=== PATIENT | male | born 1940 | race Caucasian/White ===

== ENCOUNTER 2023-06-03 18:07 | Observation (INO) | payer MEDICARE, SELFPAY ==
[2023-06-03] VITALS (13 sets, daily range): BP systolic 88–113; BP diastolic 54–97; BMI 25.2
[2023-06-03 12:55] LABS: Hematocrit 32.3 % (39.0-52.0); Hemoglobin 11.5 g/dL (13.0-18.0); Mean Corp Hgb Conc. 35.6 g/dL (33.0-37.0); Mean Corpuscular Volume 109.5 fL (80.0-94.0); Platelet Count 57 10^3/uL (130-400); Red Blood Cell Count 2.95 10^6/uL (4.70-6.10); Red Cell Dist. Width 13.5 % (11.5-14.5); White Blood Cell Count 4.3 10^3/uL (4.8-10.8)
--- NOTE | 2023-06-03 13:36 | EDRN ---
called pt primary point of contact. Left message for home medication clarification.
[2023-06-03 13:41] LABS: ALT (SGPT) 14 U/L (0-50); AST (SGOT) 20 U/L (17-59); Albumin 4.3 g/dl (3.5-5.0); Alkaline Phosphatase 72 U/L (38-126); Blood Urea Nitrogen 21 mg/dl (9-20); Calcium 8.9 mg/dl (8.4-10.2); Carbon Dioxide 20 mmol/L (22-30); Chloride 104 mmol/L (98-107); Estimated Creatinine Clearance 52 ml/min; Glucose 181 mg/dl (70-99); Potassium 4.1 mmol/L (3.5-5.1); Sodium 134 mmol/L (135-145); Total Bilirubin 1.1 mg/dl (0.2-1.3); Total Protein 7.2 g/dl (6.3-8.2); eGFR > 60.00
[2023-06-03 13:47] LABS: Absolute Neutrophils -Man Diff 1.7 10^3/uL (1.4-6.5); Band Neutrophils 0 % (0-3); Lymphocytes 38 % (20-51); Monocytes 5 % (2-9); Segmented Neutrophils 40 % (42-75)
[2023-06-03 13:48] LABS: Atypical Lymphocytes 16 %
[2023-06-03 13:49] LABS: Normal RBC Morphology No
[2023-06-03 13:50] LABS: Acanthocytes Occasional; Nucleated Red Blood Cells 4 (-); Ovalocytes 2+; Poikilocytosis 1+; Tear Drop Red Blood Cells Occasional; Total Cells Counted 100
[2023-06-03 14:44] LABS: NT-proBNP 5920 pg/ml; Troponin I 0.047 ng/ml
--- NOTE | 2023-06-03 15:00 | ED.GENMED ---
History of Present Illness
General
Chief Complaint: Breathing Problem
Source: patient and records
Exam Limitations: none
Time Seen by Provider: 06/03/23 13:45
Nursing documentation reviewed up to this point in time: agreed with
Travel History
Have you had any contact with someone who has COVID-19?: No
Do you have any symptoms of coronavirus? Fever > 100 degrees, chills, cough, shortness of breath, sore throat, loss of taste or smell, muscle aches, or headache?: No
History of Present Illness
History of Present Illness:
Patient is a 82-year-old male who presents to the emergency department complaining of shortness of breath for 2 weeks. Is gotten progressively worse. Patient denies cough, fever or chills, nasal congestion or sore throat. Patient denies chest
pain or palpitations. Patient denies orthopnea. Patient denies any extremity edema or pain. Patient denies any GI or symptoms. Patient has a rather extensive cardiac history with multiple stents as well as an EF of about 25 to 30%. Patient
was here in March and had an elevated troponin at that time but did not want to stay. Patient lives at home with his . Patient has gotten progressively weaker to is having difficulty ambulating with his walker.
Past History
Past History
ED Past Medical History: CAD (Multiple stents and VA. ), CHF, GERD, HTN, Hypercholesterolemia, NIDDM, VA, Valvular disease, Hypothyroidism and Other (Colon polyps, Millan's esophagitis, fatty liver with liver enzyme elevation, TIA, Compression FX,)
ED Past Surgical History: Cardiac (Coronary angioplasty and stenting X8, AVR) and Other (Hernia repair X 2)
Social History
Tobacco: Former smoker
Alcohol: Daily
Drug: None
Personal:
Living: with family
Employment: Retired
Family History
Family History: Cancer; Negative Diabetes, Hypertension, Early CAD or Asthma
Review of Systems
Review of Systems
All Other Systems: ROS reviewed and negative except as documented in HPI and ROS
Constitutional: Reports fatigue; Denies fever or chills
EENT: Reports no symptoms
Respiratory: Reports trouble breathing; Denies cough
Cardiac: Denies chest pain, diaphoresis or palpitations
ABD/GI: Reports no symptoms
: Reports no symptoms
Musculoskeletal: Reports no symptoms
Skin: Reports no symptoms
Neurological: Reports no symptoms
Hematologic/Lymphatic: Reports no symptoms
Phy Exam
Physical Exam
Physical Exam:
Physical Exam
General: minimal distress, alert and appropriate, elderly and frail, well hydrated
HENT: Normocephalic, supple with no lymphadenopathy, no thyromegaly
Eyes: Clear sclera, conjuctiva without injection
Heart: Regular rhythm and rate. No S3, S4. No murmur. No NVD, bruit
Lungs: No respiratory distress, no stridor, lung sounds clear and equal bilaterally
Abdomen: Soft, nontender, no organomegaly, no CVA tenderness, BS good
Neuro: Alert and usual mental status, CN II - XII intact, no motor focality
Skin: no rash
Psychiatric: well kept. interactive and cooperative
Extremities: No edema, cyanosis, tenderness
Scores
Heart Failure Risk
Heart Failure Risk Score: Not Applicable
Heart Score for Chest Pain Patients
STEMI patient?: Not applicable
Withdrawal Assessment of Alcohol
Withdrawal Assessment Completed?: Not applicable
Course
Orders/Labs/Results
Orders:
Orders
06/03/23 12:36
Electrocardiogram (*1) Urgent
Reason for Study: Shortness of Breath
06/03/23 12:37
EKG- Treatment ONCE
06/03/23 12:42
Complete Blood Count/With Diff Urgent
Comprehensive Metabolic Panel Urgent
Manual Differential Urgent
06/03/23 14:03
NT-proBNP Urgent
Troponin I Urgent
06/03/23 14:14
CR Chest - 2 Views Urgent
Comment:
Reason For Exam: sob
06/03/23 15:28
Aspirin Chewable [Low Strength Aspirin] 243 mg PO NOW STA
Heparin 4,000 units IV NOW STA
06/03/23 15:30
Heparin 07975 Units/250 ml 25,000 units in 250 ml IV PER PROTOCOL
Weight to be used for heparin protocol in kilograms (kg):: 81.8
Protocol:: Cardiac Tx/Acute Coronary
PTT Goal Range to be used:: PTT 73 to 111 seconds
Order type:: Initial
INITIAL Infusion Dose (UNITS/KG/hr) & then follow protocol:: 12 units/kg/hr
Infusion Dose in UNITS/hr & then follow protocol (UNITS/hr):: 1,000
INFUSION RATE in mL/hr & then follow protocol (mL/hr):: 10
PTT less than or equal to 64 seconds:: Increase rate by 200 units/hr (+ 2 mL/hr)
PTT 64.1 to 72.9 seconds:: Increase rate by 100 units/hr (+ 1 mL/hr)
PTT 73 to 111 seconds:: Target Range. No change in rate.
PTT 111.1 to 130.9 seconds:: Decrease rate by 100 units/hr (- 1 mL/hr)
PTT 131 to 199.9 seconds:: HOLD for 1 hr. Then decrease rate by 200 units/hr (- 2 mL/hr)
PTT greater than or equal to 200 seconds:: HOLD for 2 hrs & Notify Provider. Then decrease by 200 units/hr (-
2 mL/hr)
Lab follow-up:: Each change, PTT q6h until 2 consecutive are therapeutic. Then PTT
daily.
Nursing to Place Non Medication Order As Directed
Physician Order: PTT 6 hours after initial start of Heparin infusion
Above order entered?: Yes
06/03/23 15:49
PTT Urgent
Comment: Obtain baseline before beginning heparin infusion if not already collected
06/03/23 15:58
CARDIOLOGY CONSULT Routine
Consulting Provider: Teddy Frausto
Was physician already notified: Yes
Reason for consult: elevated troponin
06/03/23 17:00
Furosemide [Lasix] 20 mg IV DAILY
06/03/23 17:05
Admit/Transfer Patient As Directed
Co-Sign Provider:
Level of Care: Observation services
Assign to:: Telemetry
Physician / Group: Flynn
Diagnosis: SOB
Reason for Telemetry: Chest Pain syndromes
Date to Stop Telemetry: 06/05/23
Time to Stop Telemetry: 11:00
06/03/23 17:08
Code Status As Directed
Resuscitation Status: Full Code
06/03/23 18:00
Atorvastatin [Lipitor] 20 mg PO QPM
06/03/23 21:50
PTT Urgent
06/04/23 06:00
Echo 2D MMode Color/Doppler IN AM
Reason for Study: abnormal troponin, SOB
06/05/23 11:00
DC Protocol for Telemetry ONCE
Abnormal Lab Results
06/03/23 06/03/23
12:42 14:03
WBC 4.3 L 10^3/uL
(4.8-10.8)
RBC 2.95 L 10^6/uL
(4.70-6.10)
Hgb 11.5 L g/dL
(13.0-18.0)
Hct 32.3 L %
(39.0-52.0)
MCV 109.5 H fL
(80.0-94.0)
MCH 39.0 H pg
(27.0-31.0)
Plt Count 57 L 10^3/uL
(130-400)
MPV 13.0 H fL
(7.4-10.4)
Segmented Neutrophils 40 L %
(42-75)
Sodium 134 L mmol/L
(135-145)
Carbon Dioxide 20 L mmol/L
(22-30)
BUN 21 H mg/dl
(9-20)
Glucose 181 H mg/dl
(70-99)
Troponin I 0.047 H* ng/ml
06/03/23 12:42
06/03/23 12:42
Vital Signs
Initial and Last Documented VS:
Initial Vital Signs
Pulse Resp BP Pulse Ox
99 27 98/64 98
06/03/23 12:34 06/03/23 12:34 06/03/23 12:34 06/03/23 12:34
Last Documented Vital Signs
Temp Pulse Resp BP Pulse Ox
97.8 F 85 23 98/60 100
06/03/23 12:37 06/03/23 17:17 06/03/23 16:15 06/03/23 17:17 06/03/23 16:15
*Pulse Oximetry
Patient hypoxic: no
*EKG
Interpreted by ED Provider?: Yes
EKG Intrepretation Date: 06/03/23
EKG Intrepretation Time: 15:11
Interpretation: abnormal
Comparison EKG: no changes
Heart Rate: 79
Rate: normal
Rhythm: sinus
Modena: normal axis
Interval: normal QT interval and first degree heart block
QRS Pattern: left bundle branch block
Ischemia: non-specific ST changes
*[employer] Main[employer] Developer Interpretation
Rate: normal
Interpretation: normal
Heart Rate: 80
Rhythm: sinus
*Critical Care Note
Total Time (30-74mins, 75-104mins- exclusive of procedures): Not Applicable
Update Note
Update Note:
Patient's troponin is elevated however looking at previous ones it does not look like it ever returned to normal. Patient has known cardiovascular disease. Patient will be admitted.
ED Attending Note
-
Portions of this chart may have been created with voice recognition software.� Occasional wrong word or��sound alike� substitutions may have occurred due to the inherent limitations of voice recognition software.
Discharge Plan
Departure
Patient Disposition: Admit
Date of Disposition: 06/03/23
Time of Disposition: 15:26
Admit to: IVU
Admit to doctor: Hospitalist
Presentation/result/management discussed w/ accepting MD/DO: Cardiology
Patient with high blood pressure during this ER visit?: No
Condition: Fair
Covid-19: Not Applicable
Discharge Problem:
Non-STEMI (non-ST elevated myocardial infarction)
Prescriptions:
No Action
paroxetine HCl 30 mg Tablet
30 mg PO DAILY Qty: 0
cyanocobalamin (vitamin B-12) 1,000 mcg tablet
1,000 mcg PO DAILY
carvedilol 3.125 mg tablet
3.125 mg PO BID
levothyroxine 88 mcg tablet
88 mcg PO DAILY
tramadol 50 mg tablet
50 mg PO BIDPRN PRN (Reason: moderate pain)
Patient Comments:
06/03/2023, patient filled this medication on 05/25/2023 for 60 tablets according to PDMP.
aspirin 81 mg Tablet,Delayed Release (Dr/Ec)
81 mg PO DAILY
ibuprofen [Advil] 200 mg Tablet
400 mg PO Q6H PRN (Reason: mild pain)
clopidogrel [Plavix] 75 mg Tablet
75 mg PO DAILY
Patient Comments:
06/03/2023, could not find this med. in pharmacy fill data or [facility] records.
esomeprazole magnesium 20 mg Capsule,Delayed Release(Dr/Ec)
40 mg PO DAILY
Tylenol
2 tab PO BIDPRN PRN (Reason: mild pain)
Referrals:
Paul Cleary MD [Family Provider] -
Interventions
Interventions:
*Risk Screen - Suicide Last Done: 06/03/23 12:37
*General Assessment Last Done: 06/03/23 12:37
*Neglect/Abuse Screening Last Done: 06/03/23 12:37
*ED COVID-19 Vaccine History Last Done: 06/03/23 12:37
ED- Cardiac Assessment Last Done: 06/03/23 12:51
ED-Musculoskeletal Assessment Last Done: 06/03/23 13:04
ED- Pulmonary Assessment Last Done: 06/03/23 12:51
--- NOTE | 2023-06-03 15:40 | HPS.HSE ---
Family Physician
-
Family Physician: Paul Cleary
Chief Complaint
-
SOB
History of Present Illness
82 y/o M with PMHx:
Coronary artery disease with previous ME
Chronic HFrEF
Gastroesophageal reflux disease
Essential hypertension
Hyperlipidemia
DM2
Hypothyroidism
L3 compression fx Apr 2023
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
Aortic stenosis status post TAVR with bovine valve
B12 deficiency
Anxiety
Depression
who p/w CC shortness of breath. Over the last few weeks the patient has had worsening shortness of breath. He reports that his shortness of breath is not related to exertion. He denies any chest pain. He denies orthopnea but complains of
paroxysmal nocturnal dyspnea. He has no other acute complaints. He denies nausea, vomiting, diarrhea, abdominal pain, fevers, headache, visual disturbances, rash, focal neurological deficits, dysuria.
Medical History
Past Medical History
Past Medical History: Reports Other (as per HPI)
Past Surgical History: Reports Other (N/A)
Social History
Tobacco: Former Smoker
Alcohol: Daily
Drug: None
Family History
Family History: Not pertinent
Allergies / Home Medications
Allergies reflects when Allergies were last updated in [facility].
Home Medications with original date entered in [facility]
Allergy/Medication List:
Allergies
Allergy/AdvReac Type Severity Reaction Status Date / Time
No Known Allergies Allergy Verified 06/03/23 12:53
Home Medications
paroxetine HCl 30 mg tablet 30 mg PO DAILY Depression ##0 02/02/22
carvedilol 3.125 mg tablet 3.125 mg PO BID Blood Pressure 03/11/23
cyanocobalamin (vitamin B-12) 1,000 mcg tablet 1,000 mcg PO DAILY Supplement 03/11/23
levothyroxine 88 mcg tablet 88 mcg PO DAILY Thyroid 03/11/23
tramadol 50 mg tablet 50 mg PO BIDPRN PRN moderate pain 04/08/23
aspirin 81 mg tablet,delayed release 81 mg PO DAILY 04/10/23
ibuprofen 200 mg tablet (Advil) 400 mg PO Q6H PRN mild pain 04/10/23
Tylenol 2 tab PO BIDPRN PRN mild pain 06/03/23
clopidogrel 75 mg tablet (Plavix) 75 mg PO DAILY 06/03/23
esomeprazole magnesium 20 mg capsule,delayed release 40 mg PO DAILY 06/03/23
Review of Systems
-
History Source: Patient
A 12 point ROS was completed and negative except as noted: Yes
Physical Exam
Vital Signs
Vital Signs
Temp Pulse Resp BP Pulse Ox
97.8 F 76 24 96/62 99
06/03/23 12:37 06/03/23 15:15 06/03/23 15:15 06/03/23 14:00 06/03/23 15:15
Physical Exam
General: Other (.)
Laboratory Results
-
06/03/23 12:42
06/03/23 12:42
Laboratory Results
Total Bilirubin 1.1 mg/dl (0.2-1.3) 06/03/23 12:42
AST 20 U/L (17-59) 06/03/23 12:42
ALT 14 U/L (0-50) 06/03/23 12:42
Alkaline Phosphatase 72 U/L (38-126) 06/03/23 12:42
Troponin I 0.047 ng/ml H* 06/03/23 14:03
Impression/Plan
-
Gen: NAD, AAOx3.
Eyes: EOMI, PERRLA, no scleral icterus.
Neck: supple.
CV: RRR, +S1/S2, no m/r/g.
Resp: CTAB, no rales, wheezes, or rhonchi.
Abd: +BS, soft, NT, ND
Skin: No rashes.
Neuro: CN 2-12 intact, non-focal.
Psych: Normal mood and affect.
CXR: There has been some improvement since the prior study. Coarse interstitial markings which remain at the lung bases are likely chronic fibrosis.
Elevated trop:
-with h/o Coronary artery disease with previous ME and Chronic HFrEF
-with SOB
-ECG (read by me): NSR @ 79, LBBB, TWi II, III, aVF
-Trop 0.047, trend trop
-proBNP 5920
-heparin gtt started by ER. OK to continue for now pending cardiology eval
-cont ASA/BB/Plavix
Other problems:
Gastroesophageal reflux disease: cont PPI
Essential hypertension: cont BB
Hyperlipidemia
DM2
Hypothyroidism: cont Levoxyl
L3 compression fx Apr 2023
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
Aortic stenosis status post TAVR with bovine valve
B12 deficiency
Anxiety: Cont Paxil
Depression: Cont Paxil
FULL/Heparin
--- NOTE | 2023-06-03 15:45 | PHANOTE ---
06/03/2023, [facility], spoke to pt. to obtain their medication history; pt. states that he has Clopidogrel 75 mg at home and that he should be taking it daily, but he does not; however, I was not able to find this medication in pharmacy fill data
or [facility] records. Additionally, pt. does not take his medications routinely because per pt., 'I am lazy'.
--- NOTE | 2023-06-03 15:51 | CON.CAR ---
Addendum entered and electronically signed by Teddy Frausto MD 06/03/23 17:39:
I saw and examined the patient.
The RN MANAGER's note was reviewed and I agree with the note.
82-year-old male with history of bioprosthetic aortic valve replacement 2015, ischemic cardiomyopathy with severely reduced left ventricular function and an ejection fraction of 15%, history of coronary stent who presents with shortness of breath.
He has had some progressive shortness of breath over the last couple weeks which he states was worse today. He sometimes feels a bit short of breath at night no lower extremity edema no chest pain. It appears he is noncompliant with medical
therapy he has not taken any medications for the past week this includes not taking any brand. Even when he takes his medications he does it inconsistently. It is not clear how much he has been taking his Lasix but it is clear he has not taken any
in the last week. No overt. Evidence of volume overload. No edema weights are somewhat elevated based on ER weight in comparison to last hospitalization and last office visit. Is a relatively low blood pressure but even with systolics in the 90s
he has no complaints of lightheadedness or dizziness.
-Diuresis with IV Lasix cautious diuresis with close monitoring of blood pressure
-Resume aspirin.
-Minimal elevation in troponin. Has had elevations in similar range on prior hospitalizations. Can continue to treat.
-With no symptoms and patient with pi�a and platelet count of 57 would hold IV heparin which was initially started inthe ER
Original Note:
Consultation
Consultation Request
Date/Time Consultation Requested: 06/03/23 1558
Date/Time Consultation Performed: 06/03/23 1600
Requesting Provider: Dr. Pruett
Performing Provider: Ines VALDOVINOS for Dr. Frausto
Reason for Consultation: abnormal troponin, SOB
Medical History
-
Chief Complaint: SOB
History of Present Illness:
82 y/o male with ICM EF 15%, LBBB, CAD with hx stenting, dyslipidemia, HTN, severe s/p AVR 2015, and DM who is here for evaluation of SOB x 2 weeks. Nothing makes it better or worse. He does not check weights. He is not on lasix currently, but it
was listed at his last OP cardio visit 03/12/23. He is not sure when/why he stopped it. He denies any CP. His weight is up about 4 kg since 04/12/23 based on ER weight. BNP is elevated 5920 (most it has been). EKG stable, but with LBBB. CXR shows
suggestion for chronic fibrotic changes. Heparin was started in ER due to concern for possible NSTEMI. Dr. Victor is his typical nurse anesthetist.
Past Medical History
Past Medical History: CAD, CHF, Hypercholesterolemia, NIDDM, Valvular Disease and Other (LBBB)
Social History
Tobacco: Former Smoker (quit in 1966)
Family History
Family History: Reviewed & Not Pertinent
Allergies / Home Medications
Allergy/AdvReac Type Severity Reaction Status Date / Time
No Known Allergies Allergy Verified 06/03/23 12:53
Medication Instructions Recorded Confirmed Type
paroxetine HCl 30 mg tablet 30 mg PO DAILY Depression ##0 02/02/22 06/03/23 History
carvedilol 3.125 mg tablet 3.125 mg PO BID Blood Pressure 03/11/23 06/03/23 History
cyanocobalamin (vitamin B-12) 1,000 mcg PO DAILY Supplement 03/11/23 06/03/23 History
1,000 mcg tablet
levothyroxine 88 mcg tablet 88 mcg PO DAILY Thyroid 03/11/23 06/03/23 History
tramadol 50 mg tablet 50 mg PO BIDPRN PRN moderate pain 04/08/23 06/03/23 History
aspirin 81 mg tablet,delayed 81 mg PO DAILY 04/10/23 06/03/23 History
release
ibuprofen 200 mg tablet (Advil) 400 mg PO Q6H PRN mild pain 04/10/23 06/03/23 History
Tylenol 2 tab PO BIDPRN PRN mild pain 06/03/23 06/03/23 History
esomeprazole magnesium 20 mg 40 mg PO DAILY 06/03/23 06/03/23 History
capsule,delayed release
Review of Systems
-
History Source: Patient
All other systems: Negative unless noted
Respiratory: Trouble Breathing
Physical Exam
Vital Signs
Temp Pulse Resp BP Pulse Ox
97.8 F 76 24 96/62 99
06/03/23 12:37 06/03/23 15:15 06/03/23 15:15 06/03/23 14:00 06/03/23 15:15
Lab Results
06/03/23 12:42
06/03/23 12:42
Troponin I 0.047 ng/ml H* 06/03/23 14:03
Nuk-X-Smiwddeazpk Pept 5920 pg/ml 06/03/23 14:03
Physical Exam
General: Well Developed, Well Nourished and No Apparent Distress
HEENT: Normocephalic and Anicteric
Respiratory: Clear and Non Labored Respirations
Cardiac: Regular Rhythm
GI: Soft and Non Distended
Musculoskeletal: No Edema
Skin: Warm and Dry
Neuro: AO x 3
Psych: Calm
Impression / Plan
-
SOB:
-suspect related to [id number] HFrEF (he was previously on Lasix, not clear when this stopped). BNP most elevated it's been in [employer], weight up from previous visit here (4 kg).
-IV lasix as tolerated (BP's on low side)- this medicine requires intensive monitoring for toxicity
-also some chronic fibrotic changes on CXR?
-check echo
Abnormal troponin:
-suspect non-ischemic myocardial injury in setting of CHF exacerbation (see above). Do not suspect NSTEMI at this time. He has no CP and has chronically elevated trop - would stop heparin drip. Trend to peak.
-recent cath as below
-check echo
ICM:
-he is on low dose Coreg. He had symptomatic hypotension with Coreg 6.25mg BID, as well as Lisinopril/Entresto. He has declined and ICD and Aldactone as OP.
CAD:
-cath 07/14/22: right dominant circulation with patent stents prox and mid RCA, patent stent prox circ, prox and mid LAD patent stents, and ostial/proximal diag, with 10% and 20% in-stent restenosis in LAD and RCA
-continue aspirin, resume statin (was on previously, no currently on list).
Hx AVR 2016:
-update echo
Data Reviewed
-
EKG: Tracing Personally Visualized and interpreted (SR with LBBB, stable)
Radiology: Report Reviewed by me (CXR: 06/03/23: There has been some improvement since the prior study. Coarse interstitial markings which remain at the lung bases are likely chronic fibrosis)
Medical Tests (Nuc Med, Echo etc): Report Reviewed by me
Labs: Labs Reviewed by me
[2023-06-03] MEDS: LOW STRENGTH ASPIRIN 243 MG PO (15:53)
[2023-06-03] MEDS: HEPARIN 25000 UNITS/250 ML IV (15:53)
[2023-06-03] MEDS: HEPARIN 4000 UNITS IV (15:53)
[2023-06-03 16:33] LABS: APTT 24.9 Sec (23.4-35.0)
[2023-06-03] MEDS: LASIX 20 MG IV (17:17)
[2023-06-03] MEDS: LIPITOR 20 MG PO (19:05)
[2023-06-03] MEDS: LOVENOX 40 MG SC (21:16)
[2023-06-03] MEDS: COREG 3.125 MG PO (21:16)
[2023-06-04] VITALS (24 sets, daily range): BP systolic 81–118; BP diastolic 48–74; BMI 22.1; BMI 21.8
[2023-06-04 00:05] LABS: Troponin I 0.055 ng/ml
[2023-06-04 06:45] LABS: Blood Urea Nitrogen 21 mg/dl (9-20); Calcium 8.6 mg/dl (8.4-10.2); Carbon Dioxide 23 mmol/L (22-30); Chloride 105 mmol/L (98-107); Estimated Creatinine Clearance 57 ml/min; Glucose 97 mg/dl (70-99); Potassium 4.2 mmol/L (3.5-5.1); Sodium 135 mmol/L (135-145); eGFR > 60.00
--- NOTE | 2023-06-04 09:09 | W.PN.CD ---
Addendum entered and electronically signed by BONIFACIO Sanchez 06/04/23 09:37:
It looks like patient hasn't been on Plavix as OP, and no recent stents. Patient with thrombocytopenia. Will stop Plavix, continue aspirin.
Addendum entered and electronically signed by Teddy Frausto MD 06/04/23 09:35:
I saw and examined the patient.
The CRIMINAL JUSTICE PROFESSOR's note was reviewed and I agree with the note.
Appears to be tolerating diuresis. Continue to monitor weights and I's and O's. Also monitor blood pressure. Patient tends to run a low blood pressure at baseline but will also need to monitor orthostatics. Daily assessment of timing of
transition to oral diuretic. Additional guideline directed medical therapy limited by blood pressure. Hopefully patient will be compliant with medical therapy at discharge.
Original Note:
Today's Communication / Plan
-
-continue cautious IV diuresis and follow BP's
-check echo
Impression / Plan
-
SOB: improving
-weight today pending- asked nursing to check it. Reports he urinated more with lasix and breathing improved.
-suspect related to [id number] HFrEF (he was previously on Lasix, not clear when this stopped). BNP most elevated it's been in [employer], weight up from previous visit here (4 kg). Awaiting today's weight as above.
-continue IV lasix as tolerated (BP's on low side- currently 95/67)- this medicine requires intensive monitoring for toxicity
-also some chronic fibrotic changes on CXR?
-check echo today
Abnormal troponin:
-suspect non-ischemic myocardial injury in setting of CHF exacerbation
-recent cath as below
-check echo
ICM:
-he is on low dose Coreg. He had symptomatic hypotension with Coreg 6.25mg BID, as well as Lisinopril/Entresto. He has declined and ICD and Aldactone as OP.
CAD:
-cath 07/14/22: right dominant circulation with patent stents prox and mid RCA, patent stent prox circ, prox and mid LAD patent stents, and ostial/proximal diag, with 10% and 20% in-stent restenosis in LAD and RCA
-continue aspirin, statin resumed
Hx AVR 2016:
-update echo
Physical Exam
Vital Signs/Labs
Vital Signs
Temp Pulse Resp BP Pulse Ox
98.6 F 76 18 81/48 99
06/04/23 05:41 06/04/23 06:01 06/04/23 06:01 06/04/23 06:01 06/04/23 06:01
06/03/23 06/04/23 06/05/23
06:59 06:59 06:59
Actual Weight 81.8 kg
06/03/23 12:42
06/04/23 05:38
APTT Cancelled 06/03/23 21:50
06/03/23
14:03
Syu-I-Jqtntbysqll Pept 5920
LAB Results
06/03/23 06/03/23 06/03/23
14:03 19:53 23:33
Troponin I 0.047 H* Cancelled 0.055 H*
06/04/23
05:38
Troponin I 0.050 H*
Physical Exam
Constitutional: No acute distress
EENT: Anicteric
Cardiovascular: Rhythm & rate is regular and Pedal edema is absent
Respiratory: Respiratory effort normal and Lungs clear to auscul.
GI: Soft, Non tender and Normal bowel sounds
Neuro/Psych: Alert and Oriented
Other: Skin (warm and dry)
Data Reviewed
-
Date of Service: June 04, 2023
EKG: Other (SR)
Echo: Other (ordered)
Labs: Labs Reviewed by me
[2023-06-04] MEDS: PAXIL 30 MG PO (09:32)
[2023-06-04] MEDS: PROTONIX 40 MG PO (09:32)
[2023-06-04] MEDS: ASPIR LOW (ENTERIC COATED) 81 MG PO (09:32)
[2023-06-04] MEDS: SYNTHROID 88 MCG PO (09:32)
[2023-06-04] MEDS: VITAMIN B-12 1000 MCG PO (09:33)
[2023-06-04] MEDS: TYLENOL 650 MG PO ×2 (09:34→17:50)
[2023-06-04 09:48] LABS: Glycohemoglobin (HgbA1c) 5.6 % (4.0-5.6)
--- NOTE | 2023-06-04 10:12 | W.PN.HOSP.TC ---
Today's Communication/Plan
-
see bold
Assessment / Plan
Assessment / Plan
Gen: NAD, AAOx3.
Eyes: EOMI, PERRLA, no scleral icterus.
Neck: supple.
CV: RRR, +S1/S2, no m/r/g.
Resp: CTAB, no rales, wheezes, or rhonchi.
Abd: +BS, soft, NT, ND
Skin: No rashes.
Neuro: CN 2-12 intact, non-focal.
Psych: Normal mood and affect.
CXR: There has been some improvement since the prior study. Coarse interstitial markings which remain at the lung bases are likely chronic fibrosis.
Acute on chronic HFrEF:
-with h/o Coronary artery disease with previous [place]
-presented with SOB
-ECG (read by me): NSR @ 79, LBBB, TWi II, III, aVF
-Trop minimally elevated and flat (acute nonischemic myocardial injury)
-proBNP 5920
-heparin gtt started by ER but then stopped by cardiology
-cont ASA/BB
-cont IV Lasix
Other problems:
Gastroesophageal reflux disease: cont PPI
Essential hypertension: cont BB
Hyperlipidemia
DM2
Hypothyroidism: cont Levoxyl
L3 compression fx Apr 2023
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
Aortic stenosis status post TAVR with bovine valve
B12 deficiency
Anxiety: Cont Paxil
Depression: Cont Paxil
FULL/Heparin
Anticipated Discharge: Within 24 hours
Subjective/Interval History
-
Date of Service: June 04, 2023
Objective Data
-
Labs:
Laboratory Results
06/03/23 06/04/23
21:50 05:38
APTT Cancelled
Sodium 135
Potassium 4.2
Chloride 105
Carbon Dioxide 23
BUN 21 H
Creatinine 1.1
Glucose 97
Calcium 8.6
Vital Signs:
Vital Signs
Temp Pulse Resp BP Pulse Ox
98.7 F 72 22 95/67 98
06/04/23 09:19 06/04/23 09:19 06/04/23 09:19 06/04/23 09:19 06/04/23 09:19
I&O
06/03/23 06/04/23 06/05/23
06:59 06:59 06:59
Output Total 1974
Balance -1974
--- NOTE | 2023-06-04 10:29 | CARDSERVLU ---
Echocardiogram with [facility] completed after protocol screening completed. Allergies verified.
Patent IV site: _Left hand site clear____
IV site flushed with 0.9% NaCl pre and post administration.
Diluted bolus method utilized to enhance visualization of ventricular martinez.
Total volume given: _4___ mL
Patient tolerated all procedures well without complications.
[2023-06-04] MEDS: LASIX 20 MG IV (10:30)
[2023-06-04] MEDS: COREG 3.125 MG PO ×2 (10:31→19:34)
--- NOTE | 2023-06-04 14:00 | CM ---
Patient seen at bedside with daughter present. OBS/WALLACE form completed and signed form placed on chart. Patient lives with his in a one story home. Patient stated that Dr. Cleary is his PCP and he uses the [facility] in [place]. Patient is
driving and stated that he uses his walker. Patient has Daughterly companions daily 10-8. Patient daughter confirmed. Patient had consult for [employer] the per [employer] is not covered and [employer] is covered at 476.66$. CM completed the consult and
will reach out to the patient. Patient also asked for referral to [facility] to restart care and CM updated [facility] liaison. Patient physician completed referral. Patient states per physician he will be discharged later today. CM will continue to follow for
discharge planning needs.\\
Plan; home with Daughterly companions and [facility]
--- NOTE | 2023-06-04 14:46 | VNURNOTE ---
Home Health Liaison spoke with patient's daughter natalee by phone at 1415 to discuss [facility] nurse/therapy, visits, schedule and homebound status. Natalee is agreeable and understands that visits at home will be 2-3 x per week to assess and teach
medical management. Patient has a scale and is able to log a daily weight.
Natalee is aware that [facility] will contact them for start of care in 1-2 days after discharge from .
[facility] referral completed in [facility].
[2023-06-04] MEDS: LIPITOR 20 MG PO (16:16)
[2023-06-04] MEDS: LOVENOX 40 MG SC (16:16)
[2023-06-05] VITALS (9 sets, daily range): BP systolic 67–116; BP diastolic 48–70; PULSE 48–79; BMI 21.8
[2023-06-05] MEDS: SYNTHROID 88 MCG PO (05:03)
[2023-06-05 07:10] LABS: Blood Urea Nitrogen 29 mg/dl (9-20); Calcium 8.8 mg/dl (8.4-10.2); Carbon Dioxide 20 mmol/L (22-30); Chloride 101 mmol/L (98-107); Estimated Creatinine Clearance 49 ml/min; Glucose 112 mg/dl (70-99); Potassium 3.6 mmol/L (3.5-5.1); Sodium 133 mmol/L (135-145); eGFR > 60.00
[2023-06-05] MEDS: TYLENOL 650 MG PO ×3 (07:25→21:13)
[2023-06-05] MEDS: PROTONIX 40 MG PO (09:10)
[2023-06-05] MEDS: VITAMIN B-12 1000 MCG PO (09:10)
[2023-06-05] MEDS: ASPIR LOW (ENTERIC COATED) 81 MG PO (09:10)
[2023-06-05] MEDS: COREG 3.125 MG PO (09:10)
[2023-06-05] MEDS: LASIX 20 MG IV (09:11)
[2023-06-05] MEDS: PAXIL 30 MG PO (09:11)
--- NOTE | 2023-06-05 10:19 | W.PN.CD ---
Today's Communication / Plan
-
discharge planning
ASA 81mg daily, atorvastatin 20mg daily, coreg 3.125mg bid, lasix 20mg daily
BMP next week
we will arrange for follow up with us
please call us with additional questions
Impression / Plan
-
Acute on chronic systolic HF: improved s/p IV lasix
-transition to lasix 20mg PO daily tomorrow
Abnormal troponin:
-non-ischemic myocardial injury in setting of CHF exacerbation
ICM EF 15%:
-meds limited by hypotension (NUHA/ARB, entresto, aldactone) and patient preference
-max tolerated for now is coreg 3.125mg bid
-no coverage for SGLT2i
-patient has declined ICD in past
CAD:
-cath 07/14/22: right dominant circulation with patent stents prox and mid RCA, patent stent prox circ, prox and mid LAD patent stents, and ostial/proximal diag, with 10% and 20% in-stent restenosis in LAD and RCA
-continue aspirin, statin
Hx AVR 2016:
-stable on echo
Physical Exam
Vital Signs/Labs
Vital Signs
Temp Pulse Resp BP Pulse Ox
97.9 F 72 18 116/70 97
06/05/23 07:10 06/05/23 09:11 06/05/23 07:10 06/05/23 09:11 06/05/23 07:10
06/04/23 06/05/23 06/06/23
06:59 06:59 06:59
Actual Weight 81.8 kg 70.902 kg
06/03/23 12:42
06/05/23 05:43
APTT Cancelled 06/03/23 21:50
06/03/23
14:03
Pgi-E-Lxrnbsgpfbl Pept 5920
LAB Results
06/03/23 06/03/23 06/03/23
14:03 19:53 23:33
Troponin I 0.047 H* Cancelled 0.055 H*
06/04/23
05:38
Troponin I 0.050 H*
Physical Exam
Constitutional: No acute distress and Comfortable
EENT: Moist mucous membranes
Cardiovascular: Rhythm & rate is regular, Pedal edema is absent, Systolic murmur absent and JVD present
Respiratory: Respiratory effort normal and Lungs clear to auscul.
GI: Soft, Distention absent and Flat
Neuro/Psych: AO x 3
Data Reviewed
-
Date of Service: June 05, 2023
EKG: Other (Tele: SR 60s, PVC's)
--- NOTE | 2023-06-05 11:49 | W.PN.UPDATE ---
Addendum entered and electronically signed by BONIFACIO Roberts 06/05/23 12:06:
Carvedilol placed on hold in addition to furosemide.
Orthostatics as documented.
Midodrine 5 mg x 1 now.
Original Note:
Update Note
Progress Note Update
Called to see patient.
He was ambulating from the bathroom when he had weakness. He was lowered to the floor by nursing staff. He reports his legs felt weak. He denied dizziness, lightheadedness, and chest pain. BP 75/49 with a heart rate of 81. He was safely placed
back in bed with a BP 101/67 with a heart rate of 79. Will obtain orthostatic vital signs.
Currently symptom-free.
--- NOTE | 2023-06-05 11:53 | W.PN.HOSP.TC ---
Today's Communication/Plan
-
see bold
Assessment / Plan
Assessment / Plan
Gen: NAD, AAOx3.
Eyes: EOMI, PERRLA, no scleral icterus.
Neck: supple.
CV: RRR, +S1/S2, no m/r/g.
Resp: CTAB, no rales, wheezes, or rhonchi.
Abd: +BS, soft, NT, ND
Skin: No rashes.
Neuro: CN 2-12 intact, non-focal.
Psych: Normal mood and affect.
CXR: There has been some improvement since the prior study. Coarse interstitial markings which remain at the lung bases are likely chronic fibrosis.
Acute on chronic HFrEF:
-with h/o Coronary artery disease with previous [place]
-presented with SOB
-ECG (read by me): NSR @ 79, LBBB, TWi II, III, aVF
-Trop minimally elevated and flat (acute nonischemic myocardial injury)
-proBNP 5920
-heparin gtt started by ER but then stopped by cardiology
-cont ASA/BB
-The patient was diuresed with IV Lasix. He has now been converted to oral Lasix.
-This morning, while walking, as per the patient's nurse, he became weak and had to be lowered to the floor. Blood pressure was 75/49 and heart rate was 81. He denied dizziness. He was placed back in his bed and stated he felt better. His blood
pressure improved to 101/67, heart rate 79.
-Cardiology to reevaluate prior to discharge
-check orthostatic VS
Other problems:
Gastroesophageal reflux disease: cont PPI
Essential hypertension: cont BB
Hyperlipidemia
DM2
Hypothyroidism: cont Levoxyl
L3 compression fx Apr 2023
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
Aortic stenosis status post TAVR with bovine valve
B12 deficiency
Anxiety: Cont Paxil
Depression: Cont Paxil
FULL/Heparin
Anticipated Discharge: Today
Subjective/Interval History
-
Date of Service: June 05, 2023
Currently denies chest pain or shortness of breath.
Objective Data
-
Labs:
Laboratory Results
06/05/23
05:43
Sodium 133 L
Potassium 3.6
Chloride 101
Carbon Dioxide 20 L
BUN 29 H
Creatinine 1.2
Glucose 112 H
Calcium 8.8
Vital Signs:
Vital Signs
Temp Pulse Resp BP Pulse Ox
97.9 F 81 18 75/49 100
06/05/23 07:10 06/05/23 10:53 06/05/23 10:53 06/05/23 10:53 06/05/23 10:53
I&O
06/04/23 06/05/23 06/06/23
06:59 06:59 06:59
Intake Total 480 / 480 480 / 480
Output Total 1974 150 / 150 100 / 100
Balance -1974 330 / 330 380 / 380
[2023-06-05] MEDS: ProAmatine 5 MG PO (12:41)
--- NOTE | 2023-06-05 14:07 | CM ---
While walking this AM became weak and had to be lowered to floor. Hypotensive. Cardio to re-evaluate prior to DC
CM Consult completed; [facility]
--- NOTE | 2023-06-05 15:32 | CM ---
Met with patient at bedside
IMM explained and signed
Plan: Home with home care when medically stable; daughter will provide transport
[2023-06-05] MEDS: LOVENOX 40 MG SC (17:43)
[2023-06-05] MEDS: LIPITOR 20 MG PO (17:43)
[2023-06-06 03:06] VITALS: BP 95/66
[2023-06-06] MEDS: SYNTHROID 88 MCG PO (05:20)
[2023-06-06 05:35] VITALS: BMI 21.8
[2023-06-06 06:22] LABS: Blood Urea Nitrogen 29 mg/dl (9-20); Calcium 8.7 mg/dl (8.4-10.2); Carbon Dioxide 23 mmol/L (22-30); Chloride 99 mmol/L (98-107); Estimated Creatinine Clearance 49 ml/min; Glucose 112 mg/dl (70-99); Potassium 3.4 mmol/L (3.5-5.1); Sodium 133 mmol/L (135-145); eGFR > 60.00
[2023-06-06 07:24] VITALS: BP 105/64; BP 75/53; BP 99/64; PULSE 82; PULSE 87
[2023-06-06] MEDS: ASPIR LOW (ENTERIC COATED) 81 MG PO (08:15)
[2023-06-06] MEDS: PAXIL 30 MG PO (08:15)
[2023-06-06] MEDS: VITAMIN B-12 1000 MCG PO (08:15)
[2023-06-06] MEDS: PROTONIX 40 MG PO (08:15)
[2023-06-06] MEDS: FLUSH (NSS) 1 FLUSH IV (08:16)
--- NOTE | 2023-06-06 09:31 | W.PN.CD ---
Today's Communication / Plan
-
-
restart coreg and see how BP tolerates
If needed, add daily midodrine, 5mg BID
rec lasix 20mg po every other day at dc to home
possibly home later today
Impression / Plan
-
Acute on chronic systolic HF: improved s/p IV lasix
-transition to lasix 20mg PO daily tomorrow
Abnormal troponin:
-non-ischemic myocardial injury in setting of CHF exacerbation
ICM EF 15%:
-meds limited by hypotension (NUHA/ARB, entresto, aldactone) and patient preference
-max tolerated for now is coreg 3.125mg bid
-no coverage for SGLT2i
-patient has declined ICD in past
CAD:
-cath 07/14/22: right dominant circulation with patent stents prox and mid RCA, patent stent prox circ, prox and mid LAD patent stents, and ostial/proximal diag, with 10% and 20% in-stent restenosis in LAD and RCA
-continue aspirin, statin
Hx AVR 2016:
-stable on echo
Physical Exam
Vital Signs/Labs
Vital Signs
Temp Pulse Resp BP Pulse Ox
97.6 F 85 18 95/66 95
06/06/23 07:25 06/06/23 03:06 06/06/23 07:25 06/06/23 03:06 06/06/23 07:25
06/05/23 06/06/23 06/07/23
06:59 06:59 06:59
Actual Weight 156 lb 5 oz 156 lb 5 oz
06/03/23 12:42
06/06/23 05:26
APTT Cancelled 06/03/23 21:50
06/03/23
14:03
Ups-C-Bdodmepxczu Pept 5920
LAB Results
06/03/23 06/03/23 06/03/23
14:03 19:53 23:33
Troponin I 0.047 H* Cancelled 0.055 H*
06/04/23
05:38
Troponin I 0.050 H*
Physical Exam
Constitutional: Comfortable
Cardiovascular: Rhythm/rate is irregular and Systolic murmur present
Respiratory: Respiratory effort normal and Lungs clear to auscul.
Data Reviewed
-
Date of Service: June 06, 2023
EKG: Tracing Personally Visualized and interpreted
Labs: Labs Reviewed by me
--- NOTE | 2023-06-06 09:48 | W.PN.HOSP.TC ---
Today's Communication/Plan
-
see bold
Assessment / Plan
Assessment / Plan
Gen: NAD, Awake and alert
Eyes: EOMI, PERRLA, no scleral icterus.
Neck: supple.
CV: remains RRR, +S1/S2, no m/r/g.
Resp: remains CTAB, no rales, wheezes, or rhonchi.
Abd: +BS, soft, NT, ND
Skin: No rashes.
Neuro: CN 2-12 intact, non-focal.
Psych: Normal mood and affect.
CXR: There has been some improvement since the prior study. Coarse interstitial markings which remain at the lung bases are likely chronic fibrosis.
Acute on chronic HFrEF:
-with h/o Coronary artery disease with previous [place]
-presented with SOB
-ECG (read by me): NSR @ 79, LBBB, TWi II, III, aVF
-Trop minimally elevated and flat (acute nonischemic myocardial injury)
-proBNP 5920
-heparin gtt started by ER but then stopped by cardiology
-cont ASA
-The patient was diuresed with IV Lasix. He has now been converted to oral Lasix.
-06/05/23AM, while walking, as per the patient's nurse, he became weak and had to be lowered to the floor. Blood pressure was 75/49 and heart rate was 81. He denied dizziness. He was placed back in his bed and stated he felt better. His blood
pressure improved to 101/67, heart rate 79. Orthostatic VS POS.
-BB was stopped but now restarted
-06/05/23AM orthostatic VS NEG
-start Midodrine 5mg PO TID
-appreciated cardiology
Other problems:
Hypokalemia: PO K, check Mg
Gastroesophageal reflux disease: cont PPI
Essential hypertension: cont BB
Hyperlipidemia
DM2: diet controlled
Hypothyroidism: cont Levoxyl
L3 compression fx Apr 2023
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
Aortic stenosis status post TAVR with bovine valve
B12 deficiency
Anxiety: Cont Paxil
Depression: Cont Paxil
FULL/Heparin
Anticipated Discharge: Within 24 hours
Subjective/Interval History
-
Date of Service: June 06, 2023
Denies CP/SOB/lightheadedness.
Objective Data
-
Labs:
Laboratory Results
06/06/23
05:26
Sodium 133 L
Potassium 3.4 L
Chloride 99
Carbon Dioxide 23
BUN 29 H
Creatinine 1.2
Glucose 112 H
Calcium 8.7
Vital Signs:
Vital Signs
Temp Pulse Resp BP Pulse Ox
97.6 F 85 18 95/66 95
06/06/23 07:25 06/06/23 03:06 06/06/23 07:25 06/06/23 03:06 06/06/23 07:25
I&O
06/05/23 06/06/23 06/07/23
06:59 06:59 06:59
Intake Total 480 / 480 1320 / 1320
Output Total 150 / 150 540 / 540
Balance 330 / 330 780 / 780
[2023-06-06] MEDS: TYLENOL 650 MG PO ×2 (09:54→20:13)
[2023-06-06 11:06] VITALS: BP 101/64; BP 105/64; BP 88/55; PULSE 80; PULSE 86; PULSE 91
[2023-06-06] MEDS: KCL 40 MEQ PO (11:59)
[2023-06-06] MEDS: ProAmatine 5 MG PO ×2 (12:00→17:47)
[2023-06-06 13:19] LABS: Magnesium 1.8 mg/dl (1.6-2.3)
[2023-06-06 15:30] VITALS: BP 106/64; BP 99/61; PULSE 79; PULSE 81
[2023-06-06] MEDS: LOVENOX 40 MG SC (17:47)
[2023-06-06] MEDS: LIPITOR 20 MG PO (17:47)
[2023-06-06 19:23] VITALS: BP 105/70; BP 114/74; BP 95/61; PULSE 102; PULSE 119; PULSE 92
[2023-06-06] MEDS: COREG 3.125 MG PO (21:09)
[2023-06-06 23:43] VITALS: BP 102/57; BP 82/51; BP 94/58; PULSE 74; PULSE 78; PULSE 93
--- NOTE | 2023-06-06 23:50 | PTCARENOTE ---
At 19:23, bp 110/68 hr 92 with scheduled Coreg 3.125mg without administration parameters. Pt has been positive for orthostatics with complaints of dizziness earlier in the evening- lasix 20mg on hold. RN reached out to [employer]- orders to administer
scheduled Coreg 3.125mg. At 23:43, pt had positive ortho's. Laying 102/57, sitting 94/58, standing 82/51 w/o complaints of dizziness. Pt is resting comfortably w/o complaints of pain and call stallworth within reach.
[2023-06-07] VITALS (7 sets, daily range): BP systolic 70–110; BP diastolic 52–70; PULSE 73–103; BMI 21.9
[2023-06-07] MEDS: SYNTHROID 88 MCG PO (05:18)
[2023-06-07 06:44] LABS: Blood Urea Nitrogen 23 mg/dl (9-20); Calcium 8.8 mg/dl (8.4-10.2); Carbon Dioxide 22 mmol/L (22-30); Chloride 102 mmol/L (98-107); Estimated Creatinine Clearance 49 ml/min; Glucose 103 mg/dl (70-99); Potassium 3.9 mmol/L (3.5-5.1); Sodium 133 mmol/L (135-145); eGFR > 60.00
--- NOTE | 2023-06-07 07:23 | PTCARENOTE ---
At 19:23, bp 110/68 hr 92 with scheduled Coreg 3.125mg without administration parameters. Pt has been positive for orthostatics with complaints of dizziness earlier in the evening- lasix 20mg on hold. RN reached out to PRODUCTION GRADER- orders to administer
scheduled Coreg 3.125mg. At 23:43, pt's ortho's laying 102/57, sitting 94/58, standing 82/51 w/o complaints of dizziness. Pt is resting comfortably w/o complaints of pain and call stallworth within reach.
[2023-06-07] MEDS: COREG PO (08:20)
[2023-06-07] MEDS: VITAMIN B-12 1000 MCG PO (08:42)
[2023-06-07] MEDS: ProAmatine 5 MG PO (08:42)
[2023-06-07] MEDS: PAXIL 30 MG PO (08:42)
[2023-06-07] MEDS: ASPIR LOW (ENTERIC COATED) 81 MG PO (08:43)
[2023-06-07] MEDS: PROTONIX 40 MG PO (08:43)
--- NOTE | 2023-06-07 08:45 | W.PN.CD ---
Today's Communication / Plan
-
-
cont w Midodrine
low dose coreg - If possible, follow BP at home and hold if sys BP<90
lasix 20mg 3x/week
- ok for dc home for my POV
Impression / Plan
-
Acute on chronic systolic HF: improved s/p IV lasix
-transition to lasix 20mg PO but low BP limits Rx - Rec try 20mg 3x/week
Abnormal troponin:
-non-ischemic myocardial injury in setting of CHF exacerbation
ICM EF 15%:
-meds limited by hypotension (NUHA/ARB, entresto, aldactone) and patient preference
-max tolerated for now is coreg 3.125mg bid
-no coverage for SGLT2i
-patient has declined ICD in past
CAD:
-cath 07/14/22: right dominant circulation with patent stents prox and mid RCA, patent stent prox circ, prox and mid LAD patent stents, and ostial/proximal diag, with 10% and 20% in-stent restenosis in LAD and RCA
-continue aspirin, statin
Hx AVR 2016:
-stable on echo
Physical Exam
Vital Signs/Labs
Vital Signs
Temp Pulse Resp BP Pulse Ox
97.9 F 73 18 110/70 99
06/07/23 07:10 06/07/23 08:42 06/07/23 07:10 06/07/23 08:42 06/07/23 07:10
06/06/23 06/07/23 06/08/23
06:59 06:59 06:59
Actual Weight 156 lb 5 oz 157 lb 1 oz
06/03/23 12:42
06/07/23 05:32
APTT Cancelled 06/03/23 21:50
Magnesium 1.8 mg/dl (1.6-2.3) 06/06/23 05:26
06/03/23
14:03
Rnp-A-Uqdfgdfdxgq Pept 5920
Physical Exam
Constitutional: No acute distress
Cardiovascular: Rhythm/rate is irregular
Respiratory: Respiratory effort normal
Data Reviewed
-
Date of Service: June 07, 2023
EKG: Tracing Personally Visualized and interpreted
--- NOTE | 2023-06-07 10:38 | W.PN.HOSP.TC ---
Today's Communication/Plan
-
see bold
Assessment / Plan
Assessment / Plan
Gen: remains NAD, Awake and alert
Eyes: EOMI, PERRLA, no scleral icterus.
Neck: supple.
CV: continues to remain RRR, +S1/S2, no m/r/g.
Resp: continues to remain CTAB, no rales, wheezes, or rhonchi.
Abd: +BS, soft, NT, ND
Skin: No rashes.
Neuro: CN 2-12 intact, non-focal.
Psych: Normal mood and affect.
CXR: There has been some improvement since the prior study. Coarse interstitial markings which remain at the lung bases are likely chronic fibrosis.
Acute on chronic HFrEF:
-with h/o Coronary artery disease with previous [place]
-presented with SOB
-ECG (read by me): NSR @ 79, LBBB, TWi II, III, aVF
-Trop minimally elevated and flat (acute nonischemic myocardial injury)
-proBNP 5920
-heparin gtt started by ER but then stopped by cardiology
-cont ASA
-The patient was diuresed with IV Lasix. He has now been converted to oral Lasix.
-06/05/23AM, while walking, as per the patient's nurse, he became weak and had to be lowered to the floor. Blood pressure was 75/49 and heart rate was 81. He denied dizziness. He was placed back in his bed and stated he felt better. His blood
pressure improved to 101/67, heart rate 79. Orthostatic VS POS.
-BB was stopped, then restarted
-06/07/23AM orthostatic VS POS and pt symptomatic
- stop BB and increase midodrine to 10mg PO TID
-appreciated cardiology
Other problems:
Hypokalemia, resolved
Gastroesophageal reflux disease: cont PPI
Essential hypertension: stop BB as above
Hyperlipidemia
DM2: diet controlled
Hypothyroidism: cont Levoxyl
L3 compression fx Apr 2023
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
Aortic stenosis status post TAVR with bovine valve
B12 deficiency
Anxiety: Cont Paxil
Depression: Cont Paxil
FULL/Heparin
Anticipated Discharge: Within 24 hours
Subjective/Interval History
-
Date of Service: June 07, 2023
Patient was orthostatic and symptomatic this morning.
Objective Data
-
Labs:
Laboratory Results
06/07/23
05:32
Sodium 133 L
Potassium 3.9
Chloride 102
Carbon Dioxide 22
BUN 23 H
Creatinine 1.2
Glucose 103 H
Calcium 8.8
Vital Signs:
Vital Signs
Temp Pulse Resp BP Pulse Ox
97.9 F 73 18 110/70 99
06/07/23 07:10 06/07/23 08:42 06/07/23 07:10 06/07/23 08:42 06/07/23 08:30
I&O
06/06/23 06/07/23 06/08/23
06:59 06:59 06:59
Intake Total 1320 / 1320 480 / 480
Output Total 540 / 540 1070 / 1070
Balance 780 / 780 -590 / -590
[2023-06-07] MEDS: ProAmatine 10 MG PO ×2 (13:11→17:41)
[2023-06-07] MEDS: TYLENOL 650 MG PO (13:11)
[2023-06-07] MEDS: LOVENOX 40 MG SC (17:42)
[2023-06-07] MEDS: LIPITOR 20 MG PO (17:42)
[2023-06-08] VITALS (9 sets, daily range): BP systolic 86–152; BP diastolic 54–84; PULSE 53; O2SAT 99; BMI 21.9
[2023-06-08] MEDS: ProAmatine 5 MG PO (03:33)
[2023-06-08] MEDS: SYNTHROID 88 MCG PO (05:09)
[2023-06-08 06:27] LABS: Blood Urea Nitrogen 22 mg/dl (9-20); Calcium 8.8 mg/dl (8.4-10.2); Carbon Dioxide 21 mmol/L (22-30); Chloride 99 mmol/L (98-107); Estimated Creatinine Clearance 50 ml/min; Glucose 101 mg/dl (70-99); Sodium 133 mmol/L (135-145); eGFR > 60.00
[2023-06-08 06:39] LABS: Potassium 3.8 mmol/L (3.5-5.1)
--- NOTE | 2023-06-08 07:54 | W.PN.CD ---
Today's Communication / Plan
-
OK for home on Midodrine and Lasix 20 mg MoWeFr
Adding a FLOOR TECH-P or FLOOR TECH-D can be considered/reconsidered as an outpatient
Impression / Plan
-
Acute on chronic systolic HF:
-improved s/p IV lasix
- try 20mg 3x/week
Hypotension
- Better on new midodrine
Abnormal troponin:
-non-ischemic myocardial injury in setting of CHF exacerbation
ICM EF 15%:
-meds limited by hypotension (NUHA/ARB, entresto, aldactone) and patient preference
-max tolerated for now is coreg 3.125mg bid
-no coverage for SGLT2i
-patient has declined ICD in past
- Reconsideration for FLOOR TECH (pacer w/o ICD if pt prefers) as outpatient
CAD:
-cath 07/14/22: right dominant circulation with patent stents prox and mid RCA, patent stent prox circ, prox and mid LAD patent stents, and ostial/proximal diag, with 10% and 20% in-stent restenosis in LAD and RCA
-continue aspirin, statin
Hx AVR 2016:
-stable on echo
Subjective:
No CP or dyspnea. Weak but ambulated w/o dizziness yesterday he told me
Physical Exam
Vital Signs/Labs
Vital Signs
Temp Pulse Resp BP Pulse Ox
97.7 F 75 16 99/60 98
06/08/23 06:44 06/08/23 06:44 06/08/23 06:44 06/08/23 06:44 06/08/23 06:44
06/07/23 06/08/23 06/09/23
06:59 06:59 06:59
Actual Weight 71.242 kg 71.327 kg
06/03/23 12:42
06/08/23 05:17
APTT Cancelled 06/03/23 21:50
Magnesium 1.8 mg/dl (1.6-2.3) 06/06/23 05:26
06/03/23
14:03
Cym-T-Lkmejabbwme Pept 5920
Physical Exam
Constitutional: No acute distress
Cardiovascular: Rhythm & rate is regular and Pedal edema is absent
Respiratory: Respiratory effort normal and Lungs clear to auscul.
GI: Soft and Distention absent
Neuro/Psych: Alert
Data Reviewed
-
Date of Service: June 08, 2023
[2023-06-08] MEDS: PAXIL 30 MG PO (08:22)
[2023-06-08] MEDS: ASPIR LOW (ENTERIC COATED) 81 MG PO (08:22)
[2023-06-08] MEDS: ProAmatine 10 MG PO ×3 (08:22→17:13)
[2023-06-08] MEDS: VITAMIN B-12 1000 MCG PO (08:22)
[2023-06-08] MEDS: PROTONIX 40 MG PO (08:22)
[2023-06-08] MEDS: LASIX 20 MG PO (08:25)
[2023-06-08] MEDS: TYLENOL 650 MG PO (08:27)
--- NOTE | 2023-06-08 08:41 | W.PN.HOSP.TC ---
Today's Communication/Plan
-
Discharge today
Assessment / Plan
Assessment / Plan
Physical Exam
Gen: NAD, Awake and alert
HEENT: Normocephalic
Neck: supple.
CV: continues to remain RRR, +S1/S2
Resp: CTAB
Abd: +BS, soft, NT, ND
Skin: Warm. Dry.
Neuro: CN 2-12 intact, non-focal.
Psych: Normal mood and affect.
Assessment/Plan
CXR: There has been some improvement since the prior study. Coarse interstitial markings which remain at the lung bases are likely chronic fibrosis.
Acute on Chronic Heart Failure with Reduced Ejection Fraction
Ischemic Cardiomyopathy
Coronary Artery Disease
-with h/o Coronary artery disease with previous [place]
-presented with SOB
-Trop minimally elevated and flat (acute nonischemic myocardial injury)
-proBNP 5920
-heparin gtt started by ER but then stopped by cardiology
-continue aspirin and statin
-The patient was diuresed with IV Lasix. He was then converted to oral Lasix.
-06/05/23AM, while walking, as per the patient's nurse, he became weak and had to be lowered to the floor. Blood pressure was 75/49 and heart rate was 81. He denied dizziness. He was placed back in his bed and stated he felt better. His blood
pressure improved to 101/67, heart rate 79. Orthostatic VS POS.
-06/07/23AM orthostatic VS POS and pt symptomatic: continue Midodrine. Beta Ct stopped.
-No beta ct on discharge as per Dr. Eddi Ryan Text messaging on 06/08/23
-appreciated cardiology: discharge on Lasix 20 mg Thursday and current dose of Midodrine
-Outpatient cardiology follow-up to be arranged by cardiology
Orthostatic Hypotension
-Continue Midodrine
Mild Hyponatremia
Thrombocytopenia
-Repeat CBC and BMP outpatient
Prolonged QTc
Other problems:
Hypokalemia, resolved
Gastroesophageal reflux disease: cont PPI
Essential hypertension: stop BB as above
Hyperlipidemia
DM2: diet controlled
Hypothyroidism: cont Levoxyl
L3 compression fx Apr 2023
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
Aortic stenosis status post TAVR with bovine valve
History of Aortic Valve Replacement in 2015
B12 deficiency
Anxiety: Cont Paxil
Depression: Cont Paxil
FULL/Heparin
More than 30 minutes spent in discharge including
Final examination of the patient
Summarizing hospital stay
Instructions for continuing care to all relevant caregivers
Preparation of discharge records, prescriptions, and referral forms
Total time spent (in minutes): 40
Anticipated Discharge: Today
Subjective/Interval History
-
Date of Service: June 08, 2023
Patient was seen and examined. He denied any chest pain or shortness of breath or any other new complaints.
Objective Data
-
Labs:
Laboratory Results
06/08/23
05:17
Sodium 133 L
Potassium 3.8
Chloride 99
Carbon Dioxide 21 L
BUN 22 H
Creatinine 1.2
Glucose 101 H
Calcium 8.8
Vital Signs:
Vital Signs
Temp Pulse Resp BP Pulse Ox
97.7 F 63 16 114/58 98
06/08/23 06:44 06/08/23 08:22 06/08/23 06:44 06/08/23 08:22 06/08/23 06:44
I&O
06/07/23 06/08/23 06/09/23
06:59 06:59 06:59
Intake Total 480 / 480 840 / 840
Output Total 1070 / 1070 675 / 675
Balance -590 / -590 165 / 165
--- NOTE | 2023-06-08 13:53 | W.DS.TRANS ---
DC Summary - [employer]
-
Discharge Instructions:
Discharge Diagnosis/Procedures Acute on Chronic Heart Failure with Reduced
Ejection Fraction
Ischemic Cardiomyopathy
Coronary Artery Disease
Orthostatic Hypotension
Mild Hyponatremia
Thrombocytopenia
Prolonged QTc
Diet 2 Gram Sodium,Low Cholesterol
Activity As tolerated
Driving Restrictions No driving
Blood Work BMP in 1-2 days with your primary care physician
's office
Also CBC in 1-2 days with your primary care
physician's office
Specialty Instructions Weigh Daily
Instructions:
Stand-Alone Forms:
Changes to Home Medications: Yes
Discharge Medications:
DC Medications w/original date entered in [employer]
paroxetine HCl 30 mg tablet 30 mg PO DAILY Depression ##0 02/02/22
cyanocobalamin (vitamin B-12) 1,000 mcg tablet 1,000 mcg PO DAILY Supplement 03/11/23
levothyroxine 88 mcg tablet 88 mcg PO DAILY Thyroid 03/11/23
aspirin 81 mg tablet,delayed release 81 mg PO DAILY 04/10/23
clopidogrel 75 mg tablet (Plavix) 75 mg PO DAILY 06/03/23
atorvastatin 20 mg tablet 20 mg PO QPM #30 tabs 06/08/23
furosemide 20 mg tablet 20 mg PO MOWEFR #14 tabs 06/08/23
midodrine 5 mg tablet 10 mg PO TID@0800,1300,1800 #180 tabs 06/08/23
Home Medication Changes
New medications are Atorvastatin, Furosemide and Midodrine.
Stopped Carvedilol, Esomeprazole (due to potential interaction with Plavix), ibuprofen, Tramadol and Tylenol
Pending Results: No
Total time spent discharging patient (in min): 40
--- NOTE | 2023-06-08 15:09 | CM ---
Chart reviewed. Spoke with pt
Has ride home
PT to see pt before d/c
Referral previously sent to [facility]
Plan - home with home health with [facility]
[2023-06-08] MEDS: LIPITOR 20 MG PO (17:00)
--- NOTE | 2023-06-11 08:05 | W.DCSUMMARY ---
Addendum entered and electronically signed by García Weber MD 06/11/23 09:08:
No beta tri on discharge as per Dr. Eddi Ryan Text messaging on 06/08/23
Original Note:
Discharge Summary
Discharge Data
Date of Admission: 06/03/23
Date of Discharge: 06/08/23
Total time spent discharging patient (in min): 40
-
Pending Results: No
Hospital Course
82 y/o male with past medical history of bioprosthetic aortic valve replacement 2016, ischemic cardiomyopathy with severely reduced left ventricular function and an ejection fraction of 15%, history of coronary stent, Coronary artery disease with
previous MN, Chronic Heart Failure with Reduced Ejection Fraction, Gastroesophageal reflux disease, Essential hypertension, Hyperlipidemia, Type 2 Diabetes Mellitus, Hypothyroidism, L3 compression fracture in April 2023, Chronic pancytopenia due
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 Heparin Drip was
started. Cardiology was consulted, his blood pressure was noted to be on the lower side (he was noted to have a low blood pressure at baseline), and he was started on intravenous Lasix. In the setting of of low platelets and no chest pain, Heparin
Drip was stopped after cardiology assessment.
Echocardiogram showed, as per bench patternmaker metal's report:
'CONCLUSIONS
Left ventricle is mildly dilated. Severely reduced left ventricular systolic
function. Left ventricular ejection fraction is 15%.
Stage III diastolic dysfunction suggestive of restrictive filling pattern and
increased filling pressures.
No LV thrombus visualized (contrast used).
25 mm [place] bioprosthetic aortic valve replacement which is well
seated. Peak/mean gradients across the aortic valve are 27/16 mmHg
respectively.'
Cardiology noted that patient had not been on Plavix as an outpatient, and no recent cardiac stents, and in the setting of thrombocytopenia, Plavix was stopped and Aspirin was continued. Patient became very weak while ambulating on June 11, 2023,
his systolic blood pressure was found to be in the 70s, Carvedilol and Lasix were placed on hold, and Midodrine was ordered. Orthostatic vital signs were positive. Eventually Lasix was continued but it was decided Carvedilol will be held on
discharge. The plan was for patient to be on Aspirin and Atorvastatin on discharge (not Plavix), and this was communicated to the patient's daughter Natalee (authorized contact in the chart) by phone.
Discharge Plan
-
Patient Disposition: Home with Home Care
Discharge Diagnosis/Procedures: Acute on Chronic Heart Failure with Reduced Ejection Fraction
Ischemic Cardiomyopathy
Coronary Artery Disease
Orthostatic Hypotension
Mild Hyponatremia
Thrombocytopenia
Prolonged QTc
Condition: Fair
Diet: Low Cholesterol and 2 Gram Sodium
Activity: As tolerated
Driving Restrictions: No driving
Blood Work: BMP in 1-2 days with your primary care physician's office
Also CBC in 1-2 days with your primary care physician's office
Specialty Instructions: Weigh Daily- Call MD for wt gain/loss 3 lbs overnight/5 lbs in 1 week
Referrals:
Guera Holland CRNP [Specified Professional Personl] - 06/18/23 9:20 am
Paul Cleary MD [Family Provider] - in three to four days
Prescriptions:
New
furosemide 20 mg Tablet
20 mg PO MOWEFR Qty: 14 1RF
atorvastatin 20 mg Tablet
20 mg PO QPM Qty: 30 1RF
midodrine 5 mg Tablet
10 mg PO TID@0800,1300,1800 Qty: 180 1RF
Continued
paroxetine HCl 30 mg Tablet
30 mg PO DAILY Qty: 0
cyanocobalamin (vitamin B-12) 1,000 mcg tablet
1,000 mcg PO DAILY
levothyroxine 88 mcg tablet
88 mcg PO DAILY
aspirin 81 mg Tablet,Delayed Release (Dr/Ec)
81 mg PO DAILY
Discontinued
carvedilol 3.125 mg tablet
3.125 mg PO BID
tramadol 50 mg tablet
50 mg PO BIDPRN PRN (Reason: moderate pain)
Patient Comments:
06/03/2023, patient filled this medication on 05/25/2023 for 60 tablets according to PDMP.
ibuprofen [Advil] 200 mg Tablet
400 mg PO Q6H PRN (Reason: mild pain)
clopidogrel [Plavix] 75 mg Tablet
75 mg PO DAILY
Patient Comments:
06/03/2023, could not find this med. in pharmacy fill data or [facility] records.
esomeprazole magnesium 20 mg Capsule,Delayed Release(Dr/Ec)
40 mg PO DAILY
Tylenol
2 tab PO BIDPRN PRN (Reason: mild pain)
Discharge Orders:
Discharge Patient (As Directed); Ordered 06/08/23
Ordered By: García Weber
Discharge Date and Time
Discharge Date/Time: 06/08/23 17:32
== END 2023-06-08 17:32 | disposition home health service (06) ==
LOC: 4 EAST ACU 18:07
PROVIDERS: Emergency Medicine; ADMITTING PHYSICIAN Internal Medicine; ATTENDING PHYSICIAN Hospitalist; CONSULT PHYSICIAN Internal Medicine Cardiovascular Disease; EMERGENCY PHYSICIAN Emergency Medicine; FAMILY PHYSICIAN Internal Medicine
DX: I11.0 Hypertensive heart disease with heart failure (principal); I50.23 Acute on chronic systolic (congestive) heart failure; R06.02 Shortness of breath; R26.2 Difficulty in walking, not elsewhere classified; R53.1 Weakness; I5A Non-ischemic myocardial injury (non-traumatic); I95.1 Orthostatic hypotension; I25.5 Ischemic cardiomyopathy; E87.1 Hypo-osmolality and hyponatremia; E87.6 Hypokalemia; E78.00 Pure hypercholesterolemia, unspecified; I95.9 Hypotension, unspecified; I25.10 Atherosclerotic heart disease of native coronary artery without angina pectoris; I25.2 Old myocardial infarction; K21.9 Gastro-esophageal reflux disease without esophagitis; E03.9 Hypothyroidism, unspecified; K76.0 Fatty (change of) liver, not elsewhere classified; F10.10 Alcohol abuse, uncomplicated; I44.7 Left bundle-branch block, unspecified; F32.A Depression, unspecified; F41.9 Anxiety disorder, unspecified; E53.8 Deficiency of other specified B group vitamins; D69.6 Thrombocytopenia, unspecified; M47.814 Spondylosis without myelopathy or radiculopathy, thoracic region; D61.818 Other pancytopenia; E11.9 Type 2 diabetes mellitus without complications; Z95.5 Presence of coronary angioplasty implant and graft; Z86.73 Personal history of transient ischemic attack (TIA), and cerebral infarction without residual deficits; Z87.19 Personal history of other diseases of the digestive system; Z87.891 Personal history of nicotine dependence; Z95.2 Presence of prosthetic heart valve; Z79.890 Hormone replacement therapy; Z79.82 Long term (current) use of aspirin; Z79.01 Long term (current) use of anticoagulants; Z79.02 Long term (current) use of antithrombotics/antiplatelets
CPT/HCPCS: 71046; 80048; 80053; 83036; 83735; 83880; 84484; 85025; 85730; 93005; 93306; 96365; 97162; 97166; 99285; G0378; Q9950

== ENCOUNTER → 2023-06-13 10:05 | Outpatient (REF) | payer MEDICARE, SELFPAY ==
[2023-06-13 10:54] LABS: Hematocrit 32.1 % (39.0-52.0); Hemoglobin 11.3 g/dL (13.0-18.0); Mean Corp Hgb Conc. 35.2 g/dL (33.0-37.0); Mean Corpuscular Hgb 38.7 pg (27.0-31.0); Mean Corpuscular Volume 109.9 fL (80.0-94.0); Mean Platelet Volume 12.5 fL (7.4-10.4); Nucleated Red Blood Cells % 0.4 % (-); Platelet Count 69 10^3/uL (130-400); Red Blood Cell Count 2.92 10^6/uL (4.70-6.10); White Blood Cell Count 5.3 10^3/uL (4.8-10.8)
[2023-06-13 11:24] LABS: ALT (SGPT) 15 U/L (0-50); AST (SGOT) 19 U/L (17-59); Albumin 4.5 g/dl (3.5-5.0); Alkaline Phosphatase 73 U/L (38-126); Blood Urea Nitrogen 23 mg/dl (9-20); Calcium 9.5 mg/dl (8.4-10.2); Carbon Dioxide 22 mmol/L (22-30); Chloride 99 mmol/L (98-107); Glucose 130 mg/dl (70-99); Potassium 4.4 mmol/L (3.5-5.1); Sodium 136 mmol/L (135-145); Total Bilirubin 1.5 mg/dl (0.2-1.3); Total Protein 7.4 g/dl (6.3-8.2); eGFR > 60.00
[2023-06-13 12:29] LABS: Absolute Neutrophils -Man Diff 2.7 10^3/uL (1.4-6.5); Atypical Lymphocytes 8 %; Band Neutrophils 1 % (0-3); Eosinophils 1 % (0-6); Lymphocytes 29 % (20-51); Monocytes 11 % (2-9); Segmented Neutrophils 50 % (42-75)
[2023-06-13 12:31] LABS: Normal RBC Morphology No; Platelets Checked Yes
[2023-06-13 12:34] LABS: Anisocytosis 1+
[2023-06-13 12:35] LABS: Hypochromasia 2+; Total Cells Counted 100
[2023-06-13 12:36] LABS: Ovalocytes 1+
== END ==
LOC: REG 10:05
PROVIDERS: ATTENDING PHYSICIAN Internal Medicine
DX: I50.23 Acute on chronic systolic (congestive) heart failure (principal); E87.1 Hypo-osmolality and hyponatremia; I95.1 Orthostatic hypotension; I25.10 Atherosclerotic heart disease of native coronary artery without angina pectoris; I35.0 Nonrheumatic aortic (valve) stenosis; S32.030S Wedge compression fracture of third lumbar vertebra, sequela; E78.00 Pure hypercholesterolemia, unspecified; Z09 Encounter for follow-up examination after completed treatment for conditions other than malignant neoplasm
CPT/HCPCS: 36415; 80053; 85025

== ENCOUNTER 2023-09-23 03:36 | Inpatient (IN) | payer MEDICARE, SELFPAY ==
[2023-09-22 22:31] VITALS: BP 93/69
[2023-09-22 22:46] LABS: % Basophils 0.2 % (0-2); % Eosinophils 0.3 % (0-6); % Immature Granulocytes 0.2 % (0-0.5); % Lymphocytes 10.5 % (20.5-51.1); % Monocytes 11.4 % (1.7-9.3); % Neutrophils 77.4 % (42.2-75.2); Hematocrit 29.9 % (39.0-52.0); Hemoglobin 10.4 g/dL (13.0-18.0); Mean Corp Hgb Conc. 34.8 g/dL (33.0-37.0); Mean Corpuscular Hgb 37.5 pg (27.0-31.0); Mean Corpuscular Volume 107.9 fL (80.0-94.0); Nucleated Red Blood Cells % 1.5 % (-); Platelet Count 76 10^3/uL (130-400); Red Blood Cell Count 2.77 10^6/uL (4.70-6.10); Red Cell Dist. Width 13.7 % (11.5-14.5); White Blood Cell Count 9.1 10^3/uL (4.8-10.8)
[2023-09-22 23:01] LABS: Blood Urea Nitrogen 42 mg/dl (9-20); Calcium 8.8 mg/dl (8.4-10.2); Carbon Dioxide 16 mmol/L (22-30); Chloride 101 mmol/L (98-107); Glucose 216 mg/dl (70-99); Sodium 135 mmol/L (135-145); eGFR 55.53
--- NOTE | 2023-09-22 23:12 | ED.GENMED ---
History of Present Illness
<MELIA Burrows - Last Filed: 09/23/23 04:22>
General
Chief Complaint: Abdominal Symptoms
Source: patient
Exam Limitations: none
Time Seen by Provider: 09/22/23 23:01
Travel History
Have you had any contact with someone who has COVID-19?: No
Do you have any symptoms of coronavirus? Fever > 100 degrees, chills, cough, shortness of breath, sore throat, loss of taste or smell, muscle aches, or headache?: No
History of Present Illness
History of Present Illness:
This is an 82 yo male PMH diverticulitis, bioprosthetic aortic valve, CAD, HFrEF presenting for vomiting. He states vomiting started this afternoon while resting, but has been able to tolerate liquids. Received IM zofran from EMS, which helped the
vomiting. He states this is associated with shortness of breath at rest and worse with exertion. This has been going on for about a year, but is worse today. He denies chest pain, cough, abdominal pain, fever, diarrhea, constipation, hematemesis,
hematochezia.
O2 sat fluctuating between 89 and 94 since admission. Tachy at 103 , BP 93/69.
Past History
<MELIA Burrows - Last Filed: 09/23/23 04:22>
Past History
ED Past Medical History: CAD (Multiple stents and AR. ), CHF, GERD, HTN, Hypercholesterolemia, NIDDM, AR, Valvular disease, Hypothyroidism and Other (Colon polyps, Millan's esophagitis, fatty liver with liver enzyme elevation, TIA, Compression FX,)
ED Past Surgical History: Cardiac (Coronary angioplasty and stenting X8, AVR) and Other (Hernia repair X 2)
Social History
Tobacco: Former smoker
Alcohol: Daily
Drug: None
Personal:
Living: with family
Employment: Retired
Family History
Family History: Cancer; Negative Diabetes, Hypertension, Early CAD or Asthma
Review of Systems
<MELIA Burrows - Last Filed: 09/23/23 04:22>
Review of Systems
Allergies reviewed?: Yes
Constitutional: Reports no symptoms
EENT: Reports no symptoms
Respiratory: Reports trouble breathing
Cardiac: Reports no symptoms
ABD/GI: Reports nausea and vomiting
: Reports no symptoms
Musculoskeletal: Reports no symptoms
Skin: Reports no symptoms
Neurological: Reports no symptoms
Phy Exam
<MELIA Burrows - Last Filed: 09/23/23 04:22>
General Physical Exam
General Presentation: well appearing
General age: appears stated age
General Skin: warm and dry
General Habitus: normal
General Mental: alert
General Hydration: dry mucous membranes
Cardiovascular Exam
Cardiovascular Exam: no edema, systolic murmur and tachycardia
Pulmonary Exam
Pulmonary Exam: lungs clear
Respiratory Effort: tachypnea
Gastrointestinal Exam
Gastrointestinal Exam: non tender, soft, no organomegaly and non distended
Neurological Exam
Neurological Exam: alert and oriented x3
Psychiatric Exam
Psychiatric Exam: normal mood/affect
<Quinten Sanabria DO - Last Filed: 09/23/23 00:39>
Pulmonary Exam
Pulmonary Exam: decreased breath sounds (Right lower lung) and respiratory distress
Scores
<MELIA Burrows - Last Filed: 09/23/23 04:22>
Heart Failure Risk
NT-proBNP >/=5,000ng/L (5,000pg/ml): Yes
HF Risk Score: 5
Admission Status: VERY HIGH RISK 39.8% Consider admission to hospital
<Quinten Sanabria DO - Last Filed: 09/23/23 00:39>
Heart Failure Risk
Heart Failure Risk Score: Yes
History of Stroke or TIA: No
History of intubation for respiratory distress: No
Heart rate on ED arrival >/= 110: No
SaO2 <90% on arrival on room air: Yes
HR >/=110 during 3min walk test (or too ill to perform test): Yes
ECG has acute ischemic changes: No
Urea >/=12mmol/L (BUN 33.6mg/dL): Yes
Serum CO2>/=35mmol/L: No
Troponin I or T elevated to AR Level (0.4mg/dL): No
Course
<MELIA Burrows - Last Filed: 09/23/23 04:22>
Orders/Labs/Results
Orders:
Orders
09/22/23 22:40
EKG [Electrocardiogram (*1)] Urgent
Reason for Study: Tachycardia
09/22/23 22:41
EKG- Treatment ONCE
Basic Metabolic Panel Urgent
Complete Blood Count/With Diff Urgent
09/22/23 23:45
0.9% Sodium Chloride 500 ml [Nss] 500 ml IV BOLUS
09/22/23 23:52
NT-proBNP Urgent
Comment: ADDED
Troponin I Urgent
09/23/23 00:00
CR Chest - 2 Views Urgent
Reason For Exam: dyspnea
09/23/23 00:20
Add On- LAB Urgent
Tests Added?: pro bnp
09/23/23 00:57
Furosemide [Lasix] 40 mg IV NOW STA
09/23/23 01:00
Flush (0.9% Sodium Chloride) [Flush (Nss)] See Dose Instructions IV PER PROTOCOL
09/23/23 01:53
Midodrine [ProAmatine] 10 mg .ROUTE .STK-MED ONE
09/23/23 02:16
Midodrine [ProAmatine] 10 mg PO NOW STA
09/23/23 02:54
Furosemide [Lasix] 40 mg IV ONCE PRN
09/23/23 03:11
Admit/Transfer Patient As Directed
Co-Sign Provider:
Level of Care: Inpatient admission
Assign to:: Telemetry
Physician / Group: Silverio Driver - [employer]
Diagnosis: Acute CHF
Reason for Telemetry: Acute Heart Failure
Date to Stop Telemetry: 09/26/23
Time to Stop Telemetry: 11:00
Reason for Hospitalization: Acute CHF - diuretics IV
Expected length of stay greater than two midnights?: Yes
ELOS- Estimated Length of Stay in days: 3
I certify the patient meets the requirements for IP care: Yes
09/23/23 03:12
Code Status As Directed
Resuscitation Status: Full Code
09/23/23 03:47
Acetaminophen [Tylenol] 650 mg PO Q4HPRN PRN
Acetaminophen [Tylenol] 650 mg PO Q8HPRN PRN
Bisacodyl [Dulcolax] 10 mg RECTAL [id number] PRN
Clorazepate Dipotassium [Tranxene] 7.5 mg PO DAILY PRN
Docusate W/Senna [Senokot-S] 1 tablet PO BIDPRN PRN
Ondansetron Injectable [Zofran] 4 mg IV Q6HPRN PRN
Polyethylene Glycol Powder [Miralax] 17 grams PO DAILYPRN PRN
09/23/23 03:47
CARDIOLOGY CONSULT Routine
Consulting Provider: Kat Quintero
Was physician already notified: Yes
Activity As Directed
Activity Level: As Tolerated
Intake/ Output As Directed
Frequency: q12h
Vital Signs As Directed
Frequency: Per unit guidelines
Weight As Directed
Frequency: Daily
Ot Eval And Treat Routine
Pt Eval And Treat Routine
Activity Level: As Tolerated
09/23/23 Breakfast
Cholesterol Lowering
At Your Request: Full Participation
Fluid Restriction: 1500 mL/day (50 oz)
Cholesterol Lowering: Sodium, 2 Gram
Basic Metabolic Panel IN AM
Complete Blood Count/No Diff IN AM
Troponin I IN AM
Levothyroxine [Synthroid] 88 mcg PO DAILY @ 0600
09/23/23 08:00
Aspirin Chewable [Low Strength Aspirin] 81 mg PO DAILY
Cyanocobalamin [Vitamin B-12] 1,000 mcg PO DAILY
Heparin 5,000 units SC Q12
Midodrine [ProAmatine] 10 mg PO TID@0800,1300,1800
Paroxetine [Paxil] 30 mg PO DAILY
09/23/23 22:00
Atorvastatin [Lipitor] 20 mg PO HS
09/26/23 11:00
DC Protocol for Telemetry ONCE
Abnormal Lab Results
09/22/23 09/22/23
22:41 23:52
RBC 2.77 L 10^6/uL
(4.70-6.10)
Hgb 10.4 L g/dL
(13.0-18.0)
Hct 29.9 L %
(39.0-52.0)
MCV 107.9 H fL
(80.0-94.0)
MCH 37.5 H pg
(27.0-31.0)
Plt Count 76 L 10^3/uL
(130-400)
MPV 13.0 H fL
(7.4-10.4)
Absolute Neuts (auto) 7.0 H 10^3/uL
(1.4-6.5)
Absolute Lymphs (auto) 1.0 L 10^3/uL
(1.2-3.4)
Absolute Monos (auto) 1.0 H 10^3/uL
(0.1-0.6)
Neutrophils % 77.4 H %
(42.2-75.2)
Lymphocytes % 10.5 L %
(20.5-51.1)
Monocytes % 11.4 H %
(1.7-9.3)
Carbon Dioxide 16 L mmol/L
(22-30)
BUN 42 H mg/dl
(9-20)
Glucose 216 H mg/dl
(70-99)
Troponin I 0.382 H* ng/ml
09/22/23 22:41
09/22/23 22:41
Vital Signs
Initial and Last Documented VS:
Initial Vital Signs
Temp Pulse Resp BP Pulse Ox
98.2 F 103 30 93/69 94
09/22/23 22:31 09/22/23 22:31 09/22/23 22:31 09/22/23 22:31 09/22/23 22:31
Last Documented Vital Signs
Temp Pulse Resp BP Pulse Ox
98.2 F 113 18 119/50 98
09/22/23 22:31 09/23/23 04:19 09/23/23 04:19 09/23/23 04:19 09/23/23 04:19
<Quinten Sanabria, DO - Last Filed: 09/23/23 00:39>
Orders/Labs/Results
Orders:
Orders
09/22/23 22:40
EKG [Electrocardiogram (*1)] Urgent
Reason for Study: Tachycardia
09/22/23 22:41
EKG- Treatment ONCE
Basic Metabolic Panel Urgent
Complete Blood Count/With Diff Urgent
09/22/23 23:45
0.9% Sodium Chloride 500 ml [Nss] 500 ml IV BOLUS
09/22/23 23:52
NT-proBNP Urgent
Comment: ADDED
Troponin I Urgent
09/23/23 00:00
CR Chest - 2 Views Urgent
Reason For Exam: dyspnea
09/23/23 00:20
Add On- LAB Urgent
Tests Added?: pro bnp
09/23/23 00:57
Furosemide [Lasix] 40 mg IV NOW STA
09/23/23 01:00
Flush (0.9% Sodium Chloride) [Flush (Nss)] See Dose Instructions IV PER PROTOCOL
09/23/23 01:53
Midodrine [ProAmatine] 10 mg .ROUTE .STK-MED ONE
09/23/23 02:16
Midodrine [ProAmatine] 10 mg PO NOW STA
09/23/23 02:54
Furosemide [Lasix] 40 mg IV ONCE PRN
09/23/23 03:11
Admit/Transfer Patient As Directed
Co-Sign Provider:
Level of Care: Inpatient admission
Assign to:: Telemetry
Physician / Group: Silverio mendoza
Diagnosis: Acute CHF
Reason for Telemetry: Acute Heart Failure
Date to Stop Telemetry: 09/26/23
Time to Stop Telemetry: 11:00
Reason for Hospitalization: Acute CHF - diuretics IV
Expected length of stay greater than two midnights?: Yes
ELOS- Estimated Length of Stay in days: 3
I certify the patient meets the requirements for IP care: Yes
09/23/23 03:12
Code Status As Directed
Resuscitation Status: Full Code
09/23/23 03:47
Acetaminophen [Tylenol] 650 mg PO Q4HPRN PRN
Acetaminophen [Tylenol] 650 mg PO Q8HPRN PRN
Bisacodyl [Dulcolax] 10 mg RECTAL [id number] PRN
Clorazepate Dipotassium [Tranxene] 7.5 mg PO DAILY PRN
Docusate W/Senna [Senokot-S] 1 tablet PO BIDPRN PRN
Ondansetron Injectable [Zofran] 4 mg IV Q6HPRN PRN
Polyethylene Glycol Powder [Miralax] 17 grams PO DAILYPRN PRN
09/23/23 03:47
CARDIOLOGY CONSULT Routine
Consulting Provider: Kat Quintero
Was physician already notified: Yes
Activity As Directed
Activity Level: As Tolerated
Intake/ Output As Directed
Frequency: q12h
Vital Signs As Directed
Frequency: Per unit guidelines
Weight As Directed
Frequency: Daily
Ot Eval And Treat Routine
Pt Eval And Treat Routine
Activity Level: As Tolerated
09/23/23 Breakfast
Cholesterol Lowering
At Your Request: Full Participation
Fluid Restriction: 1500 mL/day (50 oz)
Cholesterol Lowering: Sodium, 2 Gram
Basic Metabolic Panel IN AM
Complete Blood Count/No Diff IN AM
Troponin I IN AM
Levothyroxine [Synthroid] 88 mcg PO DAILY @ 0600
09/23/23 08:00
Aspirin Chewable [Low Strength Aspirin] 81 mg PO DAILY
Cyanocobalamin [Vitamin B-12] 1,000 mcg PO DAILY
Heparin 5,000 units SC Q12
Midodrine [ProAmatine] 10 mg PO TID@0800,1300,1800
Paroxetine [Paxil] 30 mg PO DAILY
09/23/23 22:00
Atorvastatin [Lipitor] 20 mg PO HS
09/26/23 11:00
DC Protocol for Telemetry ONCE
Abnormal Lab Results
09/22/23 09/22/23
22:41 23:52
RBC 2.77 L 10^6/uL
(4.70-6.10)
Hgb 10.4 L g/dL
(13.0-18.0)
Hct 29.9 L %
(39.0-52.0)
MCV 107.9 H fL
(80.0-94.0)
MCH 37.5 H pg
(27.0-31.0)
Plt Count 76 L 10^3/uL
(130-400)
MPV 13.0 H fL
(7.4-10.4)
Absolute Neuts (auto) 7.0 H 10^3/uL
(1.4-6.5)
Absolute Lymphs (auto) 1.0 L 10^3/uL
(1.2-3.4)
Absolute Monos (auto) 1.0 H 10^3/uL
(0.1-0.6)
Neutrophils % 77.4 H %
(42.2-75.2)
Lymphocytes % 10.5 L %
(20.5-51.1)
Monocytes % 11.4 H %
(1.7-9.3)
Carbon Dioxide 16 L mmol/L
(22-30)
BUN 42 H mg/dl
(9-20)
Glucose 216 H mg/dl
(70-99)
Troponin I 0.382 H* ng/ml
09/22/23 22:41
09/22/23 22:41
Vital Signs
Initial and Last Documented VS:
Initial Vital Signs
Temp Pulse Resp BP Pulse Ox
98.2 F 103 30 93/69 94
09/22/23 22:31 09/22/23 22:31 09/22/23 22:31 09/22/23 22:31 09/22/23 22:31
Last Documented Vital Signs
Temp Pulse Resp BP Pulse Ox
98.2 F 113 18 119/50 98
09/22/23 22:31 09/23/23 04:19 09/23/23 04:19 09/23/23 04:19 09/23/23 04:19
<MELIA Burrows - Last Filed: 09/23/23 04:22>
MDM/Problems Addressed
Differential Diagnosis Includes:
NSTEMI, Acute on chronic heart failure
-Worsening dyspnea, accompanied by vomiting today
-Patient has extensive cardiac history including 8 stents, EF 25-30%, aortic stenosis/bioprosthetic aortic valve, NSTEMI in May
-NSS to address hypotension
-troponin
<MELIA Burrows - Last Filed: 09/23/23 04:22>
*Critical Care Note
Total Time (30-74mins, 75-104mins- exclusive of procedures): Not Applicable
<Quinten Sanabria DO - Last Filed: 09/23/23 00:39>
*Radiology
Radiology exam reviewed: preliminary read by ED provider
*Pulse Oximetry
Patient hypoxic: yes
*Critical Care Note
Total Time (30-74mins, 75-104mins- exclusive of procedures): Not Applicable
ED Attending Note
<MELIA Burrows - Last Filed: 09/23/23 04:22>
-
Portions of this chart may have been created with voice recognition software.� Occasional wrong word or��sound alike� substitutions may have occurred due to the inherent limitations of voice recognition software.
<Quinten Sanabria DO - Last Filed: 09/23/23 00:39>
ED Attending Note
Patient seen and examined by attending physician: Yes
I performed the substantive portion of visit, reviewed & personally made and approve the management plan that is documented in note by myself or KELLY.: Yes
ED Attending Note:
Pleasant 82-year-old male presents with nausea and vomiting. He reports that for the last 6 hours he has had this nausea and vomiting. Patient has been able to tolerate liquids but feels dehydrated. Patient has extensive cardiac issues and states
that for the last few months he has been short of breath. Today he states that his breathing is worse. He feels relieved with oxygen. Denies fever or chills. Upon arrival, his oxygenation was 89% on room air. We did give him supplemental O2 via
nasal cannula and he states that he has been feeling better. Patient was seen in conjunction with the PA student. I have reviewed and agree with the history and treatment plan presented. On my independent physical exam, patient is awake, alert,
and oriented x3. He is is in minimal to moderate acute distress. Skin is pale but dry. Moves all 4 extremities.
Vital signs are stable. Patient not hypoxic while on oxygen.
Nursing note reviewed. I agree with nursing documentation up to this point in time.
Home Meds and allergies reviewed.
NUMBER AND COMPLEXITY OF PROBLEMS ADDRESSED AT THE ENCOUNTER
� Chronic conditions affecting care: Hypertension, hyperlipidemia, left bundle branch block, coronary artery disease, CHF, cardiomyopathy, ejection fraction of 25 to 30%, 8 stents
� Acute Exacerbation and/or Progression of Chronic Illness:
� Differential Diagnosis includes: CHF exacerbation, non-STEMI, pleural effusions, pneumonia
AMOUNT AND/OR COMPLEXITY OF DATA TO BE REVIEWED AND ANALYZED
I performed an independent evaluation of the following and my interpretation is:
EKG: EKG shows normal sinus rhythm rate of 100 with a left bundle branch block present. When compared to previous EKG, similar morphology though increased inverted T waves than June 04, 2023
CT:
X-rays: Large pleural effusion/pulmonary vascular congestion on the right
Ultrasound:
Laboratory Studies: Troponin is 0.382 which is elevated from previous troponin of 0.050 on 06/04/23
Other:
Review of other/old records:
Clinical information was obtained by an independent historian:
Prescriptions/Medications Considered but not given:
Further testing considered but not performed: CT PE study not performed tonight due to renal function
RISK OF COMPLICATIONS AND/OR MORBIDITY OR MORTALITY OF PATIENT MANAGEMENT
Social determinants of health affecting care: Good Social Support
Discussion with other providers: Hospitalist for admission
Escalation of care including admission/observation vs risk of discharge considered: Patient to be admitted for trend of troponin. Patient currently has no chest pain.
CRITICAL CARE NOTE:
Total Time (exclusive of procedures):
Update:
Discharge Plan
Departure
Patient Disposition: Admit
Date of Disposition: 09/23/23
Time of Disposition: 00:38
Admit to: Telemetry
Presentation/result/management discussed w/ accepting MD/DO: Hospitalist
Condition: Serious
Discharge Problem:
Elevated troponin, CHF (congestive heart failure), Lightheaded, Dyspnea on exertion, LBBB (left bundle branch block)
Interventions
Interventions:
*Risk Screen - Suicide Last Done: 09/22/23 22:31
*General Assessment Last Done: 09/22/23 22:31
*Neglect/Abuse Screening Last Done: 09/22/23 22:31
ED- Fall Risk Assessment Last Done: 09/23/23 03:38
*Nursing Disposition Last Done: 09/23/23 03:38
DH-Nurhxm-Grtfqylzsw Assessment Last Done: 09/23/23 00:26
Discharge Date and Time
Discharge Date/Time: 09/23/23 03:39
[2023-09-22] MEDS: NSS 500 IV (23:53)
[2023-09-23] VITALS (12 sets, daily range): BP systolic 88–119; BP diastolic 50–77; BMI 22.5
[2023-09-23 00:22] LABS: Troponin I 0.382 ng/ml
[2023-09-23 00:56] LABS: NT-proBNP > 27000 pg/ml
--- NOTE | 2023-09-23 03:05 | DOWNTIME ---
There was a [employer] Driver Downtime on 09/22/2023 from 0100 to 09/23/2023 at 0300. Downtime documentation of patient's care, including medication administrations, has been reconciled in the electronic record per guidelines. Refer to the
patient's paper chart under the miscellaneous tab to see printed paper medication records and downtime forms.
--- NOTE | 2023-09-23 03:08 | HPS.HSE ---
Family Physician
-
Family Physician: Paul Cleary
Chief Complaint
-
SOB
History of Present Illness
82 y/o M, hx of Chronic CHF, HTN, DM2, s/p TAVR presents to ER for SOB. Patient reports symptoms for �lots of days�. He noticed SOB with rest and exertion. He reports no CP, palpitations. No LE edema. + cough but not productive. No fever/chills.
He also reports nausea with some vomiting (stomach acid per him, no blood). No abd pain, last BM yesterday. No other complaints.
In ER, noted to have volume overload on imaging and labs � given IVF to help improve BP but remains hypotensive. Midodrine 10mg ordered prior to trial of IV Lasix dose.
Medical History
Past Medical History
Past Medical History: Reports Other (hx of Chronic CHF, HTN, DM2, s/p TAVR)
Past Surgical History: Reports Cardiac (TAVR)
Social History
Tobacco: Former Smoker
Alcohol: Former
Drug: None
Personal:
Living: With Family
Family History
Family History: Not pertinent
Allergies / Home Medications
Allergies reflects when Allergies were last updated in [facility].
Home Medications with original date entered in [facility]
Allergy/Medication List:
Allergies
Allergy/AdvReac Type Severity Reaction Status Date / Time
No Known Allergies Allergy Verified 09/22/23 22:30
Home Medications
paroxetine HCl 30 mg tablet 30 mg PO DAILY Depression ##0 02/02/22
cyanocobalamin (vitamin B-12) 1,000 mcg tablet 1,000 mcg PO DAILY Supplement 03/11/23
levothyroxine 88 mcg tablet 88 mcg PO DAILY Thyroid 03/11/23
furosemide 20 mg tablet 20 mg PO MOWEFR #14 tabs 06/08/23
midodrine 5 mg tablet 10 mg (2 x 5 mg) PO TID@0800,1300,1800 #180 tabs 06/08/23
acetaminophen 650 mg tablet,extended release 1,300 mg PO Q8H PRN mild pain 09/22/23
aspirin 81 mg chewable tablet 81 mg PO DAILY 09/22/23
atorvastatin 20 mg tablet 20 mg PO HS 09/22/23
clorazepate dipotassium 7.5 mg tablet 7.5 mg PO DAILY PRN anxiety 09/22/23
Review of Systems
-
A 12 point ROS was completed and negative except as noted: Yes
Physical Exam
Vital Signs
Vital Signs
Temp Pulse Resp BP Pulse Ox
98.2 F 102 27 92/77 99
09/22/23 22:31 09/23/23 03:00 09/23/23 03:00 09/23/23 03:00 09/23/23 03:00
Physical Exam
General: Appears Chronically Ill
HEENT: NormoCephalic and Anicteric
Respiratory: Rales
Cardiac: S1/S2 and Regular Rhythm
GI: Soft
Neuro: AO x 3
Psych: Calm
Laboratory Results
-
09/22/23 22:41
09/22/23 22:41
Laboratory Results
Total Bilirubin Cancelled 09/22/23 22:41
AST Cancelled 09/22/23 22:41
ALT Cancelled 09/22/23 22:41
Alkaline Phosphatase Cancelled 09/22/23 22:41
Troponin I 0.382 ng/ml H* 09/22/23 23:52
Data Reviewed
-
Lab Data: Labs Reviewed by me
Impression/Plan
-
Assessment:
Acute on chronic HFrEF
Acute hypoxic respiratory insufficiency on 2L
- tele Admit
- I/Os, weights, lytes
- IV Lasix as BP allows (use Midodrine to support)
- Cards consult
Non-ischemic myocardial injury from Acute CHF
CAD s/p MS
- trend to peak
GERD � continue PPI.
Essential HTN by hx, complicated by hypotension
- on Midodrine TID
HLD - statin
Type 2 DM � add SSI
s/p TAVR
Anxiety/Depression
DVT ppx: SC Heparin
Code: Full
[2023-09-23] MEDS: SYNTHROID 88 MCG PO (04:14)
[2023-09-23] MEDS: LASIX 20 MG IV ×2 (04:14→17:21)
--- NOTE | 2023-09-23 05:34 | PTCARENOTE ---
Patient received from ED via stretcher. Patient was able to stand on scale for his weight but was unable to walk into room r/t dyspnea on exertion. BP 119/50. Patient with crackles throughour B/L lung. Did not receive IV Lasix in ED r/t hypotension.
BONIFACIO James notified, one time order for 20mg IV Lasix given. Care ongoing.
[2023-09-23 05:38] LABS: Hematocrit 28.3 % (39.0-52.0); Hemoglobin 9.6 g/dL (13.0-18.0); Mean Corp Hgb Conc. 33.9 g/dL (33.0-37.0); Mean Corpuscular Hgb 37.2 pg (27.0-31.0); Mean Corpuscular Volume 109.7 fL (80.0-94.0); Platelet Count 76 10^3/uL (130-400); Red Blood Cell Count 2.58 10^6/uL (4.70-6.10); Red Cell Dist. Width 13.3 % (11.5-14.5); White Blood Cell Count 6.8 10^3/uL (4.8-10.8)
[2023-09-23 06:26] LABS: Troponin I 0.703 ng/ml
[2023-09-23 06:29] LABS: Blood Urea Nitrogen 45 mg/dl (9-20); Calcium 8.7 mg/dl (8.4-10.2); Carbon Dioxide 15 mmol/L (22-30); Chloride 104 mmol/L (98-107); Estimated Creatinine Clearance 44 ml/min; Glucose 169 mg/dl (70-99); Potassium 5.7 mmol/L (3.5-5.1); Sodium 135 mmol/L (135-145); eGFR 50.81
--- NOTE | 2023-09-23 06:32 | PTCARENOTE ---
Patient's second Troponin 0.703. No other Troponin ordered. BONIFACIO James notified. Order for additional Troponin placed. Care ongoing.
--- NOTE | 2023-09-23 06:35 | DOWNTIME ---
There was a [employer] Client Stretching Machine Operator Downtime on 09/22/2023 from 0100 to 09/23/2023 at 0300. Downtime documentation of patient's care, including medication administrations, has been reconciled in the electronic record per guidelines. Refer to the
patient's paper chart under the miscellaneous tab to see printed paper medication records and downtime forms.
[2023-09-23] MEDS: PAXIL 30 MG PO (08:14)
[2023-09-23] MEDS: ProAmatine 10 MG PO ×3 (08:15→17:21)
[2023-09-23] MEDS: VITAMIN B-12 1000 MCG PO (08:15)
[2023-09-23] MEDS: LOW STRENGTH ASPIRIN 81 MG PO (08:15)
[2023-09-23] MEDS: HEPARIN 5000 UNITS SC ×2 (08:15→19:27)
--- NOTE | 2023-09-23 08:26 | W.PN.UPDATE ---
Update Note
Progress Note Update
This is a nonbillable note this patient is seen on morning rounds after degreasing solution reclaimer admission by pricing/signage team member.
82-year-old male with a history of TAVR although prior record notes bioprosthetic aortic valve in 2016. Hypertension chronic CHF with days of shortness of breath and dyspnea on exertion. He presents with apparent underlying fluid overload and has
also had longstanding history of hypotension for which he is on midodrine/he has documented reduced EF heart failure as low as 15% in the past with stage III diastolic dysfunction and restrictive filling patterns also history of chronic pancytopenia
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 He has marked elevation in proBNP of 27,008 indeterminate elevation in his troponin presumed in relation to his presentation of CHF is difficult to monitor his output as he is incontinent and uses a
diaper. Received the furosemide dosing of 40 mg in the ED however has been hypotensive since in spite of midodrine and will hold off further until seen by cardiology/troponin is trending up still and will continue potassium is risen to 5.7 with a
bicarb of 15 and a creatinine is also trending up to 1.4 and may be dealing with a component of ATN and will consult nephrology for input also. Will give dose of Lokelma for present hyperkalemia and monitor chemistries closely
--- NOTE | 2023-09-23 09:46 | CON.CAR ---
Addendum entered and electronically signed by Jeb Rubio MD 09/23/23 12:11:
I saw and examined the patient.
The CAREER DEVELOPMENT COUNSELOR's note was reviewed and I agree with the note.
Comment: 82 y/o male with ICM EF 15%, HFrEF, CAD with hx stenting, DM2, LBBB, dyslipidemia, HTN, and severe with Bio AVR 2015 who is here for evaluation of SOB and nausea since Thursday. He reports his weight is down several lbs overall.
- IV diuresis
- overall he appears frail and chronically ill and prognosis is poor
Original Note:
Consultation
Consultation Request
Date/Time Consultation Requested: 09/23/23346
Date/Time Consultation Performed: 09/23/23829
Requesting Provider: Dr. Driver
Performing Provider: Ines VALDOVINOS for Dr. Rubio
Reason for Consultation: CHF
Medical History
-
Chief Complaint: SOB, nausea
History of Present Illness:
82 y/o male with ICM EF 15%, HFrEF, CAD with hx stenting, DM2, LBBB, dyslipidemia, HTN, and severe with Bio AVR 2015 who is here for evaluation of SOB and nausea since Thursday. He reports his weight is down several lbs overall. Originally got
fluids due to hypotension, but then given dose of IV Lasix. Potassium is elevated and he is getting Lokelma to assist with that. Creatinine is 1.4 today, which is worse than baseline. Nephrology is consulted. Troponin is elevated 0.4, 0.7, next
pending. No chest discomfort. He is on O2 by [place], and was hypoxic in ER 86% per chart.
Past Medical History
Past Medical History: CAD, CHF, HTN, Hypercholesterolemia, NIDDM, Valvular Disease and Other (as above)
Social History
Tobacco: Former Smoker
Family History
Family History: Reviewed & Not Pertinent
Allergies / Home Medications
Allergy/AdvReac Type Severity Reaction Status Date / Time
No Known Allergies Allergy Verified 09/22/23 22:30
�Medication �Instructions �Recorded �Confirmed �Type
paroxetine HCl 30 mg tablet 30 mg PO DAILY Depression ##0 02/02/22 09/22/23 History
cyanocobalamin (vitamin B-12) 1,000 mcg PO DAILY Supplement 03/11/23 09/22/23 History
1,000 mcg tablet
levothyroxine 88 mcg tablet 88 mcg PO DAILY Thyroid 03/11/23 09/22/23 History
furosemide 20 mg tablet 20 mg PO MOWEFR #14 tabs 06/08/23 09/22/23 Rx
midodrine 5 mg tablet 10 mg (2 x 5 mg) PO 06/08/23 09/22/23 Rx
TID@0800,1300,1800 #180 tabs
acetaminophen 650 mg 1,300 mg PO Q8H PRN mild pain 09/22/23 09/22/23 History
tablet,extended release
aspirin 81 mg chewable tablet 81 mg PO DAILY 09/22/23 09/22/23 History
atorvastatin 20 mg tablet 20 mg PO HS 09/22/23 09/22/23 History
clorazepate dipotassium 7.5 mg 7.5 mg PO DAILY PRN anxiety 09/22/23 09/22/23 History
tablet
Review of Systems
-
History Source: Patient
All other systems: Negative unless noted
Constitutional: Weight Loss
Respiratory: Trouble Breathing
Abdomen/GI: Nausea
Physical Exam
Vital Signs
Temp Pulse Resp BP Pulse Ox
97.5 F 106 16 92/59 99
09/23/23 07:00 09/23/23 08:15 09/23/23 07:00 09/23/23 08:15 09/23/23 07:00
Lab Results
09/23/23 05:20
Troponin I 0.703 ng/ml H* D 09/23/23 05:20
Xdr-L-Onuwqfqmbmy Pept Cancelled 09/23/23 00:15
Physical Exam
General: Well Developed and No Apparent Distress
HEENT: Normocephalic and Anicteric
Respiratory: Other (on O2 by [place], Diminished to B/L bases)
Cardiac: Regular Rhythm
Musculoskeletal: No Edema
Skin: Warm and Dry
Neuro: AO x 3
Psych: Calm
Impression / Plan
-
Bgdjh-na-kypzyll HFrEF:
-patient with severe ICM EF 15%- details below
-received fluids at first, then lasix in ER- on hold now per primary team with hypotension, worsened renal function- will review with automatic cigar wrapper tender, but BNP >23379, CXR with pulm edema and small b/l pleural effusions, so likely needs more IV lasix,
which will require intensive monitoring. Nephro is consulted as well with hyperkalemia and ROSEY.
-Regarding his ICM- GDMT is limited by hypotension requiring midodrine and patient preference per chart. Declined ICD. SGLT2 cost-prohibitive per chart.
Abnormal troponin:
-likely non-NH troponin elevation in setting of hypoxia
-denies CP
-trend to peak
CAD:
-cath 07/14/22: right dominant circulation with patent stents prox and mid RCA, patent stent prox circ, prox and mid LAD patent stents, and ostial/proximal diag, with 10% and 20% in-stent restenosis in LAD and RCA
-denies any CP
-continue ASA, statin
Hx AVR 2016:
-recent echo as below
Data Reviewed
-
EKG: Tracing Personally Visualized and interpreted (NSR 100 BPM, LBBB)
Radiology: Report Reviewed by me (CXR: 1. Findings suggestive of pulmonary edema. 2. Small bilateral pleural effusions.)
Medical Tests (Nuc Med, Echo etc): Report Reviewed by me and Other (Echo 06/04/23: Left ventricle is mildly dilated. EF 15%. Stage III DD. 25 mm [facility] Perimount bioprosthetic aortic valve replacement which is well seated. Peak/mean gradients 27/16
mmHg.)
Labs: Labs Reviewed by me
[2023-09-23] MEDS: LOKELMA 10 GRAM PO (09:52)
--- NOTE | 2023-09-23 11:06 | W.CON.NEPH ---
Consultation
-
Date/Time Consultation Requested: Acute kidney injury/hyperkalemia
Date/Time Consultation Performed: 09/23/2023 9:30 AM
Requesting Provider: Dr. Steiner
Performing Provider: Dr. Olvera
Reason for Consultation: Acute kidney injury hyperkalemia
Medical History
-
Chief Complaint: Acute kidney injury hyperkalemia
History of Present Illness:
Patient is an 82-year-old male with a history of congestive heart failure maintained on Lasix 20 mg Thursday. He has chronic hypotension requiring midodrine support. He has a history of prior aortic stenosis and has undergone
previous AVR 2015. He has a history of coronary artery disease with previous stenting procedures.he has profound ischemic cardiomyopathy with an EF of 15%..he presented to the ER for SOB. Patient reports symptoms for �lots of days�. He noticed SOB
with rest and exertion. He reports no CP, palpitations. No LE edema. + cough but not productive. No fever/chills. He also reports nausea with some vomiting (stomach acid per him, no blood). No abd pain, last BM yesterday. Last evening he became
more hypotensive and as of this morning he was notably hyperkalemic with a potassium of 5.7 and a creatinine of 1.4 of his baseline creatinine of 1.2. There is also associated metabolic acidosis with his bicarbonate of 15 this am.
Past Medical History
Ischemic cardiomyopathy with EF of 15%
Coronary artery disease with prior history of stent
Diabetes
Hypotension
History of severe with bioprosthetic aortic valve placement in 2016
Hypothyroidism
Social History
Tobacco: Former Smoker
Alcohol: Former
Drug: None
Family History
No chronic kidney disease
Allergies / Home Medications
Allergy/AdvReac Type Severity Reaction Status Date / Time
No Known Allergies Allergy Verified 09/22/23 22:30
�Medication �Instructions �Recorded �Confirmed �Type
paroxetine HCl 30 mg tablet 30 mg PO DAILY Depression ##0 02/02/22 09/22/23 History
cyanocobalamin (vitamin B-12) 1,000 mcg PO DAILY Supplement 03/11/23 09/22/23 History
1,000 mcg tablet
levothyroxine 88 mcg tablet 88 mcg PO DAILY Thyroid 03/11/23 09/22/23 History
furosemide 20 mg tablet 20 mg PO MOWEFR #14 tabs 06/08/23 09/22/23 Rx
midodrine 5 mg tablet 10 mg (2 x 5 mg) PO 06/08/23 09/22/23 Rx
TID@0800,1300,1800 #180 tabs
acetaminophen 650 mg 1,300 mg PO Q8H PRN mild pain 09/22/23 09/22/23 History
tablet,extended release
aspirin 81 mg chewable tablet 81 mg PO DAILY Blood Clot 09/22/23 09/22/23 History
Prevention/Tx
atorvastatin 20 mg tablet 20 mg PO HS High Cholesterol 09/22/23 09/22/23 History
clorazepate dipotassium 7.5 mg 7.5 mg PO DAILY PRN anxiety 09/22/23 09/22/23 History
tablet
Review of Systems
-
History Source: Patient
Constitutional: Fatigue
EENT: No Symptoms
Respiratory: Trouble Breathing
Cardiac: No Symptoms
Abdomen/GI: Nausea and Vomiting
: No Symptoms
Musculoskeletal: No Symptoms
Skin: No Symptoms
Neurological: No Symptoms
Endocrine: No Symptoms
Hematologic/Lymphatic: No Symptoms
Physical Exam
Vital Signs
Vital Signs
Temp Pulse Resp BP Pulse Ox
97.5 F 106 16 92/59 99
09/23/23 07:00 09/23/23 08:15 09/23/23 07:00 09/23/23 08:15 09/23/23 08:00
Lab Results
09/23/23 05:20
WBC 6.8 10^3/uL (4.8-10.8) 09/23/23 05:20
RBC 2.58 10^6/uL (4.70-6.10) L 09/23/23 05:20
Hgb 9.6 g/dL (13.0-18.0) L 09/23/23 05:20
Hct 28.3 % (39.0-52.0) L 09/23/23 05:20
Plt Count 76 10^3/uL (130-400) L 09/23/23 05:20
eGFR 50.81 09/23/23 05:20
Obx-V-Kyhxjkurikm Pept Cancelled 09/23/23 00:15
Albumin Cancelled 09/22/23 22:41
Physical Exam
General: AOx3, Nontoxic , mild respiratory distress on oxygen therapy, chronically ill-appearing
HEENT: PERRL, EOMI, Anicteric, Conjunctivae pale, ear/Nose Intact, Hearing Normal, Oropharynx Clear/Moist, Facial Symmetry, Neck Supple, Neck: Trachea Midline, No JVD and No Thyromegaly, no Bruits
Respiratory: Crackles bilaterally with normal lung exersion
Cardiac: S1/S2 and Regular Rate/Rhythm with 4 out of systolic ejection murmur best heard at right sternal border
Breast: Deferred by me
Abdomen: Soft, Nontender, Nondistended, Normal Bowel Sounds and No Hepatosplenomegaly
Rectal: Deferred by Provider
Genito-urinary: No Costovertebral Tenderness
Extremities: No Clubbing, No Cyanosis and No Edema
Skin: No Rash or open lesions
Neuro: Nonfocal/Grossly Intact, CN II-XII (Intact) and Strength (Musculoskeletal exam 5 out of 5 both upper and lower extremities)
Hematologic/Lymphatic: No Cervical Lymphadenopathy, No Submandibular Lymphadenopathy and No Supraclavicular Lymphadenopathy
Psych: Mood/afflect pleasant, Insight/judgement Appropriate
Vascular: plus 1 pedal and radial pulses
Data Reviewed
-
Radiology: Image Personally Visualized and interpreted (Chest x-ray reviewed bilateral interstitial edema noted with opacifications at the bases bilateral)
Medical Tests (Nuc Med, Echo etc): Other (EKG report reviewed sinus rhythm with left atrial enlargement left bundle branch block 100 bpm)
Labs: Labs Reviewed by me (BMP CBC proBNP)
Old Records: Reviewed (06/13/2023 creatinine 1.0)
Assessment/Plan
-
Impression:
Hyperkalemia
Acute kidney injury
Chronic hypotension on midodrine
End-stage ischemic cardiomyopathy
Congestive heart failure decompensation
Metabolic acidosis
Coronary artery disease with history of multiple stenting procedure
History of aortic valve replacement in 2005
Plan:
ROSEY:
-Likely prerenal in mediated in the setting of congestive heart failure decompensation with hemodynamic instability
-Maintain midodrine but will defer hemodynamics to cardiology in setting of end-stage ischemic cardiomyopathy
-Will provide sodium bicarbonate for worsening metabolic acidosis, check lactic acid
-Check postvoid bladder scan to evaluate for obstructive component
-Check urinalysis with fractional excretion of of sodium
-Hyperkalemia treated medically with Lokelma and will add sodium bicarbonate to correct underlying metabolic acidosis which should improve hyperkalemia
-Appears to be evolving cardiorenal syndrome, will likely require repeat echocardiogram
-Patient may require inotropic support which I will obviously defer to cardiology
[2023-09-23 12:40] LABS: Troponin I 0.837 ng/ml
--- NOTE | 2023-09-23 14:00 | CARDSERVLU ---
Echocardiogram with [facility] completed after protocol screening completed. Allergies verified.
Patent IV site: __R Hand___
IV site flushed with 0.9% NaCl pre and post administration.
Diluted bolus method utilized to enhance visualization of ventricular martinez.
Total volume given: __3.5__ mL
Patient tolerated all procedures well without complications.
[2023-09-23 14:13] LABS: Urine Sodium 36 mmol/L (30-90)
--- NOTE | 2023-09-23 16:32 | CM ---
Alert awake oriented patient who lives assisted living [place]. Spoke with daughter Natalee pt was sleeping. He is assisted in all activities of daily living.She declined his need for VN at [place].He uses a electric wheelchair and walks with walker.
[facility] hx / No SNF history
Pharmacy [facility]
PCP DR Fabienne Max
PLAN Return to [place]
[2023-09-23] MEDS: SODIUM BICARBONATE 650 MG PO ×2 (17:21→22:27)
[2023-09-23] MEDS: ZOFRAN 4 MG IV (19:28)
[2023-09-23 20:34] LABS: Blood Urea Nitrogen 54 mg/dl (9-20); Calcium 8.3 mg/dl (8.4-10.2); Carbon Dioxide 17 mmol/L (22-30); Chloride 100 mmol/L (98-107); Estimated Creatinine Clearance 36 ml/min; Glucose 159 mg/dl (70-99); Potassium 5.7 mmol/L (3.5-5.1); Sodium 133 mmol/L (135-145); eGFR 40.25
--- NOTE | 2023-09-23 20:37 | PTCARENOTE ---
Patient c/o nausea that was not relieved by PRN Zofran. Patient with an extensive cardiac hx, BONIFACIO Melgoza notified and order for a one time dose of IV Benadryl received. Administered with good effect. Care ongoing.
[2023-09-23 20:44] LABS: Troponin I 0.842 ng/ml
[2023-09-23] MEDS: BENADRYL 6.25 MG IV (20:56)
[2023-09-23] MEDS: LIPITOR 20 MG PO (22:27)
[2023-09-23 22:51] LABS: Urine Albumin Trace (Neg - Trace); Urine Bilirubin Negative (Negative); Urine Character Clear (Clear); Urine Color Yellow; Urine Glucose Negative (Negative); Urine Ketone Negative (Negative); Urine Leukocyte Trace (Negative); Urine Nitrite Negative (Negative); Urine Occult Blood Negative (Negative); Urine Urobilinogen Negative (Neg - 1+)
[2023-09-23 23:02] LABS: Urine Calcium Oxalate Crystals Present
[2023-09-23 23:03] LABS: Urine Bacteria Moderate (Negative); Urine Red Blood Cell 0-2 /HPF (0-2)
[2023-09-24] VITALS (29 sets, daily range): BP systolic 73–118; BP diastolic 31–84; BMI 22.6; BMI 22.9
[2023-09-24 03:04] LABS: Blood Urea Nitrogen 59 mg/dl (9-20); Calcium 8.5 mg/dl (8.4-10.2); Carbon Dioxide 11 mmol/L (22-30); Chloride 102 mmol/L (98-107); Estimated Creatinine Clearance 29 ml/min; Glucose 136 mg/dl (70-99); Iron 265 ug/dl (49-181); Potassium 6.1 mmol/L (3.5-5.1); Sodium 135 mmol/L (135-145); eGFR 31.23
[2023-09-24 03:07] LABS: Lactic Acid 6.7 mmol/L (0.7-2.0)
--- NOTE | 2023-09-24 03:15 | PTCARENOTE ---
Routine labs drawn with Troponin. Patient with several critical results. CO2 11, Lactic Acid 6.7, K+ 6.1. Patient with no signs of infection, patient unchanged from earlier assessment, dyspneic at rest, crackles throughout B/L lung. BONIFACIO Melgoza
notified of results. STAT orders placed for Lokelma, Insulin 10U IV, 1 amp of D50, and IV push of sodium bicarb. Orders placed to trend Lactic Acid. No changes to rhythm noted on tele monitor. BP 91/48. Will monitor closely, care ongoing.
--- NOTE | 2023-09-24 03:34 | W.PN.UPDATE ---
Update Note
Progress Note Update
Morning lab shows K 6.1, carbon dioxide 11, Creatinine 2.1, and lactic acid 6.7. Patient is a afebrile and WBC is 6.8.
New order placed of Lokelma 10 mg, sodium bicarb, insulin and dextrose. Will trend lactic acid q 6hrs and repeat BMP.
[2023-09-24 03:45] LABS: Troponin I 0.837 ng/ml
[2023-09-24 03:46] LABS: Percent Saturation 75 % (20-50); Total Iron Binding Capacity 349 ug/dl (261-462)
[2023-09-24] MEDS: DEXTROSE 50% SYRINGE 25 GRAMS IV (04:01)
[2023-09-24] MEDS: SODIUM BICARBONATE 50 MEQ IV ×2 (04:01→08:04)
[2023-09-24] MEDS: NOVOLIN R 0.100000000000000006 UNITS IV (04:02)
[2023-09-24] MEDS: LOKELMA 10 GRAM PO (04:06)
[2023-09-24 04:10] LABS: Cortisol, Random 79.3 ug/dl
[2023-09-24 05:07] LABS: Ferritin > 10000.0 ng/ml (17.9-464.0)
[2023-09-24] MEDS: SYNTHROID 88 MCG PO (05:42)
--- NOTE | 2023-09-24 07:09 | W.PN.HOSP.TC ---
Today's Communication/Plan
-
At this point I have updated family with poor prognosis
No decision process as to goals of care at this point and remain full code so compelled transfer to ICU
Have call into cardiology to further reinforce patient's poor prognosis with family/best viable option for care at this point would be palliative
Assessment / Plan
Assessment / Plan
82-year-old male with a history of TAVR although prior record notes bioprosthetic aortic valve in 2016. Hypertension chronic CHF with days of shortness of breath and dyspnea on exertion. He presents with apparent underlying fluid overload and has
also had longstanding history of hypotension for which he is on midodrine/he has documented reduced EF heart failure as low as 15% in the past with stage III diastolic dysfunction and restrictive filling patterns also history of chronic pancytopenia
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 He has marked elevation in proBNP of 27,008 indeterminate elevation in his troponin presumed in relation to his presentation of CHF is difficult to monitor his output as he is incontinent and uses a
diaper. Received the furosemide dosing of 40 mg in the ED however has been hypotensive since in spite of midodrine and will hold off further until seen by cardiology/troponin is trending up still and will continue potassium is risen to 5.7 with a
bicarb of 15 and a creatinine is also trending up to 1.4 and may be dealing with a component of ATN and will consult nephrology for input also. Will give dose of Lokelma for present hyperkalemia and monitor chemistries closely
Cardiorenal syndrome secondary ischemic cardiomyopathy
-Has refused ICD in the past
-Most recent 2D echocardiogram with 15% EF>> now has evolved to 10%
-Moderate to now severe mitral regurgitation which is worsened
Acute on chronic HFrEF
Acute hypoxic respiratory insufficiency on 2L
- tele Admit
- I/Os, weights, lytes
- IV Lasix as BP allows (use Midodrine to support)
-Poor prognosis apparent/had goals of care discussion with patient's daughter today as only option would be inotropic support at this point in ICU which will only be temporizing
- Cards consult
Acute kidney injury
-Presumed prerenal in relation to hypotension and CHF
-Metabolic acidosis in relation to poor perfusion
-Treating hyperkalemia with Lokelma/bicarbonate/
Non-ischemic myocardial injury from Acute CHF
CAD s/p [place]
- trend to peak
GERD � continue PPI.
Essential HTN by hx, complicated by hypotension
- on Midodrine TID
HLD - statin
Type 2 DM � add SSI
s/p TAVR
Anxiety/Depression
DVT ppx: SC Heparin
Code: Full
Anticipated Discharge: 24 - 48 hours
Subjective/Interval History
-
Date of Service: September 24, 2023
Shortness of breath at rest/poor historian
Objective Data
-
Labs:
Laboratory Results
09/23/23 09/24/23 09/24/23
20:13 02:36 06:50
Sodium 133 L 135 Pending
Potassium 5.7 H 6.1 H* Pending
Chloride 100 102 Pending
Carbon Dioxide 17 L 11 L* Pending
BUN 54 H 59 H Pending
Creatinine 1.7 H 2.1 H Pending
Glucose 159 H 136 H Pending
Calcium 8.3 L 8.5 Pending
Vital Signs:
Vital Signs
Temp Pulse Resp BP Pulse Ox
97.9 F 96 18 91/48 99
09/24/23 03:02 09/24/23 03:02 09/24/23 03:02 09/24/23 03:02 09/24/23 03:02
I&O
09/23/23 09/24/23 09/25/23
06:59 06:59 06:59
Intake Total 840 / 840
Output Total 400 / 400
Balance 440 / 440
Review of Systems
-
History Source: Patient and Family (Spoke to daughter with update this morning)
Respiratory: Reports Trouble Breathing
Cardiac: Denies Chest Pain
Abdomen/GI: Reports No Symptoms
Physical Exam
-
General: Appears Chronically Ill
HEENT: Normocephalic
Respiratory: Rales and Crackles
Cardiac: Regular Rhythm and S1/S2
Skin: Warm
Neuro: Awake
Psych: Calm and Apparent Dementia
[2023-09-24 07:12] LABS: Lactic Acid 5.3 mmol/L (0.7-2.0)
[2023-09-24] MEDS: CALCIUM GLUCONATE 10% 10 ML 4.65000000000000036 MEQ IV (08:02)
[2023-09-24] MEDS: CALCIUM GLUCONATE 100 IV (08:03)
[2023-09-24] MEDS: HEPARIN 5000 UNITS SC ×2 (08:04→20:39)
[2023-09-24] MEDS: LASIX 20 MG IV ×2 (08:04→15:44)
[2023-09-24] MEDS: SODIUM BICARBONATE 650 MG PO ×3 (08:05→21:16)
[2023-09-24] MEDS: ProAmatine 10 MG PO (08:05)
[2023-09-24] MEDS: VITAMIN B-12 1000 MCG PO (08:05)
[2023-09-24] MEDS: PAXIL 30 MG PO (08:05)
[2023-09-24] MEDS: LOW STRENGTH ASPIRIN 81 MG PO (08:05)
--- NOTE | 2023-09-24 08:36 | W.PN.CD ---
Addendum entered and electronically signed by Fernando Victor MD 09/24/23 09:51:
Mr. Cutler and family would like to try inotropic/pressor support
Original Note:
Today's Communication / Plan
-
- Discussed with patient and family. Options include inotropic and pressor support to improve hemodynamics, continued medical therapy (not advised since it isn't working), or transition to hospice. I don't think inotrope/pressor is ideal since we
have no plan after that - i.e. he would not be transplant or VAD candidate. I gave the patient and daughter time to discuss and I will tribal back.
- My recommendation would be hospice, but I will defer and implement Mr. Cutler's wishes
Impression / Plan
-
Impression 82 y/o male with ICM EF 15%, HFrEF, CAD with hx stenting, DM2, LBBB, dyslipidemia, HTN, and severe with Bio AVR 2015 who is here for evaluation of SOB and nausea since Thursday.
Cardiogenic shock with multi-organ dysfunction
- Discussed with patient and family. Options include inotropic and pressor support to improve hemodynamics, continued medical therapy (not advised since it isn't working), or transition to hospice. I don't think inotrope/pressor is ideal since we
have no plan after that - i.e. he would not be transplant or VAD candidate. I gave the patient and daughter time to discuss and I will tribal back.
- My recommendation would be hospice, but I will defer and implement Mr. Cutler's wishes
Abnormal troponin: likely non-[place] troponin elevation in setting of hypoxia
CAD:
-cath 07/14/22: right dominant circulation with patent stents prox and mid RCA, patent stent prox circ, prox and mid LAD patent stents, and ostial/proximal diag, with 10% and 20% in-stent restenosis in LAD and RCA
-denies any CP
-continue ASA, statin
Hx AVR 2016: recent echo as below
Critically ill 34 minutes.
Subjective: Nausea and dyspnea. No CP
Laboratory Data
07/12/22 07/13/22 09/23/23
03:02 05:30 05:20
Hgb 10.2 L 9.6 L
Potassium
Creatinine 1.1
Lactic Acid
Troponin I 0.085 H*
09/24/23 09/24/23 09/24/23
02:36 02:37 06:50
Hgb
Potassium 6.1 H*
Creatinine 2.1 H
Lactic Acid 6.7 H* 5.3 H*
Troponin I 0.837 H*
Selected Entries
06/08/23
05:15 09/24/23
04:49
Actual Weight 157 lb 4 oz 162 lb 4 oz
Generic Name Dose Route Start Last Admin
Trade Name Freq PRN Reason Stop Dose Admin
Aspirin 81 mg 07/12/22 08:00
Aspirin 81 Mg Chewable Tablet PO 08/09/22 07:59
DAILY EDGAR
Carvedilol 3.125 mg 07/12/22 20:00
Carvedilol 3.125 Mg Tablet PO 08/09/22 19:59
BID EDGAR
Clopidogrel Bisulfate 75 mg 07/13/22 08:00
Clopidogrel 75 Mg Tablet PO 08/10/22 07:59
DAILY EDGAR
Aspirin 81 mg 09/23/23 08:00 09/24/23 08:05
Aspirin 81 Mg Chewable Tablet PO 10/21/23 07:59 81 mg
DAILY EDGAR
Atorvastatin Calcium 20 mg 09/23/23 22:00 09/23/23 22:27
Atorvastatin (Lipitor) 20 Mg Tablet PO 10/21/23 21:59 20 mg
HS EDGAR
Midodrine 10 mg 09/23/23 08:00 09/24/23 08:05
Midodrine 5 Mg Tablet PO 10/21/23 07:59 10 mg
TID@0800,1300,1800 EDGAR
Furosemide 20 mg 09/23/23 16:00 09/24/23 08:04
Furosemide 20 Mg (10 Mg/Ml) 2 Ml Vial IV 10/21/23 15:59 20 mg
BID AT 0800,1600 [facility]
Sodium Bicarbonate 650 mg 09/23/23 16:00 09/24/23 08:05
Sodium Bicarbonate 650 Mg Tablet PO 10/21/23 15:59 650 mg
TID EDGAR
Physical Exam
Vital Signs/Labs
Vital Signs
Temp Pulse Resp BP Pulse Ox
36.8 C 100 18 82/59 99
09/24/23 07:46 09/24/23 07:46 09/24/23 07:46 09/24/23 07:46 09/24/23 07:46
09/23/23 09/24/23 09/25/23
06:59 06:59 06:59
Actual Weight 161 lb 8 oz 162 lb 4 oz
09/23/23 05:20
Magnesium Cancelled 09/24/23 06:50
09/22/23 09/23/23
23:52 00:15
[id number] Pept > [id number] Cancelled
LAB Results
09/22/23 09/23/23 09/23/23
23:52 05:20 12:02
Troponin I 0.382 H* 0.703 H* D 0.837 H*
09/23/23 09/24/23
20:13 02:37
Troponin I 0.842 H* 0.837 H*
Physical Exam
Constitutional: Other (cachetic)
EENT: Anicteric and Moist mucous membranes
Cardiovascular: Rhythm & rate is regular, Diastolic murmur absent and Systolic murmur present
Respiratory: Respiratory effort normal and Crackles Present
GI: Soft, Distention absent and Normal bowel sounds
Neuro/Psych: Alert
Data Reviewed
-
Date of Service: September 24, 2023
[2023-09-24 09:44] LABS: Blood Urea Nitrogen 64 mg/dl (9-20); Calcium 8.2 mg/dl (8.4-10.2); Carbon Dioxide 16 mmol/L (22-30); Chloride 100 mmol/L (98-107); Estimated Creatinine Clearance 29 ml/min; Glucose 126 mg/dl (70-99); Magnesium 2.2 mg/dl (1.6-2.3); Potassium 5.2 mmol/L (3.5-5.1); Sodium 134 mmol/L (135-145); eGFR 31.23
--- NOTE | 2023-09-24 10:28 | CON.INTV ---
Consultation
Consultation Request
Date/Time Consultation Requested: 09-24-23
Date/Time Consultation Performed: 09-24-23
Requesting Provider: Hospitalist romy
Performing Provider: Dr Umanzor
Reason for Consultation: heart failure
Medical History
-
Chief Complaint: dyspnea
History of Present Illness:
Mr Sid Cutler is an 82/M adm by end of 09-21 with acute on chronic dyspnea, exacerbated since 09-19, also c/o n/v since d REFRACTORY SPECIALIST.
Extensive PMH including severe s/p bioprosthetic AVR, CHF, CAD, T2DM, hypothyroidism, former smoker.
At ER, POx 89% on RA, hypotensive, deemed dehydrated and started on IVFs. Seen by Cards, picture c/w ac/chronic HFrEF. Seen by Renal due to ROSEY, metabolic acidosis and hyperkalemia. Due to worsening clinical condition was transferred to ICU 09-23
Seen at ICU, on O2 4L with POx 100%, no orthopnea, BP 101/66 (77). Denies dyspnea on O2, cough, CP, ASENCIO, n/v
Two daughters visiting at bedside
Past Medical History
Past Medical History: Other (see A&P for PMH/PSH)
Social History
Tobacco: Former Smoker
Alcohol: None
Drug: None
Personal:
Living: With Family
Employment: Retired
Family History
Family History: Reviewed & Not Pertinent
Allergies / Home Medications
Allergies
Allergy/AdvReac Type Severity Reaction Status Date / Time
No Known Allergies Allergy Verified 09/22/23 22:30
Home Medications
�Medication �Instructions �Recorded �Confirmed �Last Taken �Type
paroxetine HCl 30 mg tablet 30 mg PO DAILY Depression ##0 02/02/22 09/22/23 3 Weeks Ago History
~05/13/23
cyanocobalamin (vitamin B-12) 1,000 mcg PO DAILY Supplement 03/11/23 09/22/23 2 Weeks Ago History
1,000 mcg tablet ~05/20/23
levothyroxine 88 mcg tablet 88 mcg PO DAILY Thyroid 03/11/23 09/22/23 3 Weeks Ago History
~05/13/23
furosemide 20 mg tablet 20 mg PO MOWEFR #14 tabs 06/08/23 09/22/23 Unknown Rx
midodrine 5 mg tablet 10 mg (2 x 5 mg) PO 06/08/23 09/22/23 Unknown Rx
TID@0800,1300,1800 #180 tabs
acetaminophen 650 mg 1,300 mg PO Q8H PRN mild pain 09/22/23 09/22/23 Unknown History
tablet,extended release
aspirin 81 mg chewable tablet 81 mg PO DAILY Blood Clot 09/22/23 09/22/23 Unknown History
Prevention/Tx
atorvastatin 20 mg tablet 20 mg PO HS High Cholesterol 09/22/23 09/22/23 Unknown History
clorazepate dipotassium 7.5 mg 7.5 mg PO DAILY PRN anxiety 09/22/23 09/22/23 Unknown History
tablet
Review of Systems
-
History Source: Patient
All other systems: Negative unless noted
Constitutional: Fatigue
Respiratory: Trouble Breathing
Neuro: Weakness
Vitals / Labs / Diagnostic Testing
Vital Signs
Temp Pulse Resp BP Pulse Ox
98.2 F 100 18 82/59 99
09/24/23 07:46 09/24/23 07:46 09/24/23 07:46 09/24/23 07:46 09/24/23 07:46
Lab Data
09/23/23 05:20
09/24/23 09:10
Microbiology
09/23/23 06:41 Nose MRSA Screen - Final
No Methicillin Resistant Staphylococcus aureus isolated.
Diagnostic Testing:
Physical Exam
-
HEENT: Normocephalic, Moist Mucous Membranes and Thrush (n)
Cardiovascular: Regular Rhythm, Peripheral Edema (n), Calf Tenderness and JVD (n)
Respiratory: Wheeze (n), Rales (basilar) and Accessory Resp Muscle Use (mild)
GI: Soft, Non Distended and Non Tender
Neurology: Awake, Oriented and No Motor Deficits
Skin: Warm
General: Respiratory Distress (trace)
Assessment
-
Assessment:
Mr Sid Cutler is an 82/M adm by end of 09-21 with acute on chronic dyspnea, exacerbated since 09-19, also c/o n/v since d REFRACTORY SPECIALIST. Extensive PMH including severe s/p bioprosthetic AVR, CHF, CAD, T2DM, hypothyroidism, former smoker. At ER, POx 89%
on RA, hypotensive, deemed dehydrated and started on IVFs. Seen by Cards, picture c/w ac/chronic HFrEF. Seen by Renal due to ROSEY, metabolic acidosis and hyperkalemia. Due to worsening clinical condition was transferred to ICU 09-23
Impression:
Acute respiratory failure
Ac/chronic HFrEF
Hypotension, acute on chronic
ROSEY
Hyperkalemia
Lactic acidosis
Acute on chronic anemia
Elevated troponins
CHF
Conditions REFRACTORY SPECIALIST:
Severe , s/p bioprosthetic AVR 2015
Hypotension on midodrine
HFrEF, DHF
CAD s/p stents
LBBB
Pancytopenia due to myelosuppression 2ry to ETOH abuse
GERD
HLD
T2DM
Hypothyroidism
Anxiety, depression
Former smoker
Plan:
Transferred to ICU due to worsening metabolic acidosis in setting of cardiorenal syndrome
Continue O2 protocol
Currently on O2 4L, POx 100%
Asp precs
IS
At time of ICU transfer, borderline low BP at 101/66 (77)
NE rec by Cards
Monitor BP
Diuresis
Cautious IVF or colloids if needed: noted underlying severe HF (TTE 09-22: LVEF 10-15%, global severe hypokinesis, dilated RV with reduced systolic function, severe functional MR, bioprosth AV)
Continue midodrine
Cards following closely
Cards rec hospice, agreed to trial of inotropic and pressor support (noted patient is not a transplant or VAD candidate)
Monitor UO
Continue oral bicarb
Lokelma
Monitor e-lytes and AB status
Doubt will be candidate for hemofiltration or HD due to end-stage HF
TRT
DVT prophylaxis
Candidate for IVU instead of ICU
No critical care time from my part 09-23
D/w Mr Cutler and his two daughters at bedside
D/w ITEM REPAIR MANAGER
--- NOTE | 2023-09-24 11:03 | PTCARENOTE ---
pt transferred to icu
--- NOTE | 2023-09-24 11:22 | CM ---
Transferred to ICU for pressor support.
--- NOTE | 2023-09-24 11:41 | PTCARENOTE ---
10:30 Transfer from via bed. Patient on 4l of oxygen via nasal canula. AAO x3. Denies Pain; denies chest pain, or palpitation. BP via left upper arm 87/65 MAP 73. SR BBB 94 RR 23; oral temp 97.7; Abdomen soft, denies nausea. per pt last BM 2 days
ago. Incontinent of urine. Purwick applied to measure urinal output. No edema pedal pulses palpable. pt oriented to room surroundings . able to demonstrate how to use nursing call stallworth appropriately. RT upper arm peripheral line capped flushed
without difficulties. HOB elevated. two daughter at bedside, update provided.
[2023-09-24] MEDS: LEVOPHED 250 IV ×2 (12:12→22:55)
--- NOTE | 2023-09-24 12:14 | PTCARENOTE ---
Levophed initiated
Levophed initiated for BP 79/37 MAP 49 SR BBB 98. RR 12 99% 4L . infusing via RT upper arm
--- NOTE | 2023-09-24 12:45 | W.PN.NEPH.PH ---
Today's Communication / Plan
-
Pressor support to maintain MAP of 65 or greater
Follow BMP
Closely monitor urine output with intermittent postvoid bladder scan
Low-dose IV Lasix provided as hemodynamically tolerated for hypervolemia in setting of decompensated congestive heart failure
Spoke with cardiology already maintaining pressor support without inotrope at this time
Assessment/Plan
-
Impression:
Hyperkalemia
Acute kidney injury
Chronic hypotension on midodrine
End-stage ischemic cardiomyopathy
Congestive heart failure decompensation
Metabolic acidosis
Coronary artery disease with history of multiple stenting procedure
History of aortic valve replacement in 2005
Plan:
ROSEY:
-Likely prerenal in mediated in the setting of congestive heart failure decompensation with hemodynamic instability
-Potassium down to 5.2 after Lokelma administration
-Metabolic acidosis improving with sodium bicarbonate support
-Acute kidney injury continues to exacerbate with creatinine up to 2.1
-Patient remains hemodynamically unstable in setting of likely cardiogenic shock
-Oliguric 400 cc , follow bladder scan protocol with low threshold for Sow catheter placed
-Urinalysis unimpressive
-Maintain midodrine but will defer hemodynamics to cardiology in setting of end-stage ischemic cardiomyopathy
-Lactic acid was greater than 5
-
-Hyperkalemia was treated medically with Lokelma and will add sodium bicarbonate to correct underlying metabolic acidosis which should improve hyperkalemia
-Appears to be evolving cardiorenal syndrome, currently transferred to ICU on pressor support
-Discussed options with daughters in regards to inotrope versus palliative course
-Decision is to avoid inotropes at this point per my discussion, will update cardiology
-Patient is critically ill with evolving renal failure in the setting of cardiogenic shock with hemodynamic instability requiring pressor support
-31 minutes critical care time spent with patient
Total Time Spent with Patient (in minutes): 31 minutes critical care
-
-
Date of Service: September 24, 2023
CC / HPI / ROS
-
Chief Complaint:
Acute kidney injury
History of Present Illness:
Creatinine worsening to 2.1
Hyperkalemia improved status post Lokelma administration
Metabolic acidosis with modest improvement with sodium bicarb and administration
Hemodynamically labile on pressor support
Review of Systems:
Oliguric
No resting chest pain
Shortness of breath requiring oxygen support
Weights up
Labs
-
Labs:
WBC 6.8 10^3/uL (4.8-10.8) 09/23/23 05:20
RBC 2.58 10^6/uL (4.70-6.10) L 09/23/23 05:20
Hgb 9.6 g/dL (13.0-18.0) L 09/23/23 05:20
Hct 28.3 % (39.0-52.0) L 09/23/23 05:20
Plt Count 76 10^3/uL (130-400) L 09/23/23 05:20
eGFR 31.23 09/24/23 09:10
Xsf-R-Dxvgnddnuxb Pept Cancelled 09/23/23 00:15
Albumin Cancelled 09/22/23 22:41
Physical Exam
-
Vital Signs:
Vital Signs
Temp Pulse Resp BP Pulse Ox
97.9 F 100 18 82/59 99
09/24/23 12:23 09/24/23 07:46 09/24/23 07:46 09/24/23 07:46 09/24/23 11:04
Cardiovascular:: Regular rate and rhythm
Respiratory:: Bilateral: Rales
Lung Excursion:: Normal
Abdomen:: Nontender and Soft
Bowel Sounds:: Normal
Extremity Edema:: None: Bilateral:
Sow Catheter: No
--- NOTE | 2023-09-24 15:00 | CHAP ---
Msgr. Carlos Sanchez of [facility] in [place] gave Mr. Cutler Last Rites.
--- NOTE | 2023-09-24 15:31 | PTCARENOTE ---
pt in bed BP 92/42 SR BBB 95 POX 97%/2L . appetite poor . Levophed adjusted per protocol at this time 6mcg
--- NOTE | 2023-09-24 17:22 | PTCARENOTE ---
patient in bed. Denies pain. Denies chest pain. AAO x3; ST 101 BP 105/70 RR 24.95%/2L Dyspnea while in bed noted. RT upper arm peripheral line : levophed at 6mcg infusing. HOB elevated call stallworth within reach
[2023-09-24 18:48] LABS: Lactic Acid 5.7 mmol/L (0.7-2.0)
[2023-09-24 19:07] LABS: Blood Urea Nitrogen 70 mg/dl (9-20); Calcium 8.4 mg/dl (8.4-10.2); Carbon Dioxide 17 mmol/L (22-30); Chloride 96 mmol/L (98-107); Estimated Creatinine Clearance 27 ml/min; Glucose 200 mg/dl (70-99); Potassium 4.4 mmol/L (3.5-5.1); Sodium 132 mmol/L (135-145)
[2023-09-24 19:09] LABS: Lactic Acid 5.6 mmol/L (0.7-2.0)
[2023-09-24] MEDS: ZOFRAN 4 MG IV (19:21)
--- NOTE | 2023-09-24 20:30 | PTCARENOTE ---
rec`d pt at 1900 resting in bed. AAOx3. pt complained of nausea during shift change. prn Zofran given. SR on monitor. w/ BBB. Hr in the 90s. levo gtt running through MAXIM IV. IV infiltrated. left dual luman picc placed. now levo running through PICC.
no edema. +pulses. 2L NC satting at 95%. pt complains of constant thirst. choles lower diet w/ 1500 fluid restriction. incontinent for urine. purwick placed. diana. safe environment maintained. call stallworth in reach.
[2023-09-24] MEDS: LIPITOR 20 MG PO (21:16)
[2023-09-25] VITALS (52 sets, daily range): BP systolic 84–135; BP diastolic 47–100; BMI 23.1
--- NOTE | 2023-09-25 | PTCARENOTE ---
pt reassessed. no changes in pt assessment.
[2023-09-25 03:28] LABS: Mean Corp Hgb Conc. 34.6 g/dL (33.0-37.0); Mean Corpuscular Hgb 37.7 pg (27.0-31.0); Mean Corpuscular Volume 108.8 fL (80.0-94.0); Mean Platelet Volume 14.3 fL (7.4-10.4); Platelet Count 53 10^3/uL (130-400); Red Blood Cell Count 2.39 10^6/uL (4.70-6.10); Red Cell Dist. Width 13.7 % (11.5-14.5); White Blood Cell Count 10.5 10^3/uL (4.8-10.8)
[2023-09-25 03:39] LABS: Blood Urea Nitrogen 74 mg/dl (9-20); Calcium 7.7 mg/dl (8.4-10.2); Carbon Dioxide 19 mmol/L (22-30); Chloride 93 mmol/L (98-107); Estimated Creatinine Clearance 28 ml/min; Glucose 150 mg/dl (70-99); Potassium 4.4 mmol/L (3.5-5.1); Sodium 131 mmol/L (135-145); eGFR 29.54
[2023-09-25] MEDS: SYNTHROID 88 MCG PO (05:27)
--- NOTE | 2023-09-25 06:34 | W.PN.HOSP.TC ---
Addendum entered and electronically signed by Amadou Reardon MD 09/27/23 12:34:
Hyponatremia
Original Note:
Today's Communication/Plan
-
Had to be placed back on pressors
Continue bicarbonate
Continue pressor support at this time appears to be only prolonging the inevitable/need to reinforce palliative care options and goals of care with family
Patient's status was changed to DNR/DNI based on advanced directive yesterday
Assessment / Plan
Assessment / Plan
82-year-old male with a history of TAVR although prior record notes bioprosthetic aortic valve in 2016. Hypertension chronic CHF with days of shortness of breath and dyspnea on exertion. He presents with apparent underlying fluid overload and has
also had longstanding history of hypotension for which he is on midodrine/he has documented reduced EF heart failure as low as 15% in the past with stage III diastolic dysfunction and restrictive filling patterns also history of chronic pancytopenia
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 He has marked elevation in proBNP of 27,008 indeterminate elevation in his troponin presumed in relation to his presentation of CHF is difficult to monitor his output as he is incontinent and uses a
diaper. Received the furosemide dosing of 40 mg in the ED however has been hypotensive since in spite of midodrine and will hold off further until seen by cardiology/troponin is trending up still and will continue potassium is risen to 5.7 with a
bicarb of 15 and a creatinine is also trending up to 1.4 and may be dealing with a component of ATN and will consult nephrology for input also. Will give dose of Lokelma for present hyperkalemia and monitor chemistries closely
Cardiorenal syndrome secondary ischemic cardiomyopathy
-Most recent 2D echocardiogram with 15% EF>> now has evolved to 10%
-Moderate to now severe mitral regurgitation which is worsened
Acute on chronic HFrEF/now on pressor support
-Further inotropic support per cardiology including VAD not an option as no treatment: Site
Acute hypoxic respiratory insufficiency on 2L
-Now on pressors after short period of being off yesterday afternoon
- I/Os, weights, lytes
- IV Lasix as BP allows on scheduled midodrine and now on pressors
-Poor prognosis apparent/had goals of care discussion with patient's daughter today as only option would be inotropic support at this point in ICU which will only be temporizing
- Cards consult
Acute kidney injury
-Presumed prerenal in relation to hypotension and CHF
-Metabolic acidosis in relation to poor perfusion
-Treating hyperkalemia with Lokelma/bicarbonate/
-Lactic acidosis continues
-Nephrology following
Thrombocytopenia
-Appears to be on a chronic basis
Non-ischemic myocardial injury from Acute CHF
CAD s/p DC
- trend to peak
GERD � continue PPI.
Essential HTN by hx, complicated by hypotension
- on Midodrine TID
HLD - statin
Type 2 DM � add SSI
s/p TAVR
Anxiety/Depression
DVT ppx: SC Heparin
Code: Full
Anticipated Discharge: 24 - 48 hours
Subjective/Interval History
-
Date of Service: September 25, 2023
Exhibiting nausea and hiccups adequate urine output not measured denies any chest pain.
Objective Data
-
Labs:
Laboratory Results
09/24/23 09/25/23
18:38 03:20
WBC 10.5
Hgb 9.0 L
Hct 26.0 L
Plt Count 53 L D
Sodium 132 L 131 L
Potassium 4.4 4.4
Chloride 96 L 93 L
Carbon Dioxide 17 L 19 L
BUN 70 H 74 H
Creatinine 2.3 H 2.2 H
Glucose 200 H 150 H
Calcium 8.4 7.7 L
Vital Signs:
Vital Signs
Temp Pulse Resp BP Pulse Ox
97.6 F 97 19 112/58 97
09/25/23 03:00 09/25/23 05:15 09/25/23 05:15 09/25/23 05:00 09/25/23 05:15
I&O
09/23/23 09/24/23 09/25/23
06:59 06:59 06:59
Intake Total 840 / 840 1295.8 / 1295.8
Output Total 400 / 400 400 / 400
Balance 440 / 440 895.8 / 895.8
Review of Systems
-
History Source: Patient and Family
Constitutional: Reports Fatigue and Weakness
Respiratory: Reports Trouble Breathing
Physical Exam
-
General: No Apparent Distress
HEENT: Normocephalic
Respiratory: Crackles
Cardiac: Regular Rhythm
GI: Soft
Neuro: Awake, Alert and Oriented
Psych: Calm
Data Reviewed
-
Total Time Spent with Patient (in minutes): 56
Labs: Labs Reviewed by me (Port-A-Cath and 53,000/lactic acid remains elevated 5.6/bicarb improved to 19/creatinine 2.2 and stable/BUN trending up to 74/potassium improved 4.4/bicarb 19)
--- NOTE | 2023-09-25 07:28 | W.PN.INTV ---
Today's Communication / Plan
Recommendations
Pressor
Diuretic
O2 as needed
GOC
Assessment
-
Assessment:
Mr Sid Cutler is an 82/M adm by end of 09-21 with acute on chronic dyspnea, exacerbated since 09-19, also c/o n/v since d CARDIOLOGY COORDINATOR. Extensive PMH including severe s/p bioprosthetic AVR, CHF, CAD, T2DM, hypothyroidism, former smoker. At ER, POx 89%
on RA, hypotensive, deemed dehydrated and started on IVFs. Seen by Cards, picture c/w ac/chronic HFrEF. Seen by Renal due to ROSEY, metabolic acidosis and hyperkalemia. Due to worsening clinical condition was transferred to ICU 09-23
Impression:
Acute respiratory failure
Ac/chronic HFrEF
Hypotension, acute on chronic
ROSEY
Hyperkalemia
Lactic acidosis
Acute on chronic anemia
Elevated troponins
CHF
Conditions CARDIOLOGY COORDINATOR:
Severe , s/p bioprosthetic AVR 2015
Hypotension on midodrine
HFrEF, DHF
CAD s/p stents
LBBB
Pancytopenia due to myelosuppression 2ry to ETOH abuse
Chronic anemia and thrombocytopenia
GERD
HLD
T2DM
Hypothyroidism
Anxiety, depression
Former smoker
Plan:
Transferred to ICU 09-23 due to worsening metabolic acidosis in setting of cardiorenal syndrome
Continue O2 protocol as needed
Asp precs
IS
CXR with pulm vasc congestion, basilar atelectasis/effusions, sternotomy wiring, interim placement RUE PICC
At time of ICU transfer, borderline low BP at 101/66 (77)
NE rec by Cards, started, continue for SBP >=90
Monitor BP
Diuresis
Cautious IVF or colloids if needed: noted underlying severe HF (TTE 09-22: LVEF 10-15%, global severe hypokinesis, dilated RV with reduced systolic function, severe functional MR, bioprosth AV)
Continue midodrine
Cards following closely
Cards rec hospice, agreed to trial of inotropic and pressor support for next 24 hrs and then reevaluate (noted patient is not a transplant or VAD candidate)
Monitor UO
Continue oral bicarb
Lokelma
Monitor e-lytes and AB status
Doubt will be candidate for hemofiltration or HD due to end-stage HF
TRT
DVT prophylaxis
Candidate for IVU instead of ICU
No critical care time from my part
D/w Mr Cutler and his two daughters at bedside
D/w MDT
Code status changed to DNR/DNI 09-23
Subjective Dataa
Subjective Data
Date of Service:
Date of Service: September 25, 2023
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
Review of Systems
General: Fever (n), Sweats (n) and Chills (n)
Cardiopulmonary: Dyspnea (mild) and Chest Pain (n)
GI: Abdominal Pain (n), Nausea (n) and Vomiting
Neuro: Weakness
Objective Data
Data Reviewed
Vital Signs / I&O / Oxygen:
Vital Signs
Temp Pulse Resp BP Pulse Ox
97.6 F 97 19 112/58 97
09/25/23 03:00 09/25/23 05:15 09/25/23 05:15 09/25/23 05:00 09/25/23 05:15
Intake and Output
09/24/23 09/25/23 09/26/23
06:59 06:59 06:59
Intake Total 840 / 840 1295.8 / 1295.8
Output Total 400 / 400 400 / 400
Balance 440 / 440 895.8 / 895.8
SaO2 97
Nasal Cannula flow liters per 2
minute
Physical Exam
General: Respiratory Distress (mild)
HEENT: Normocephalic and Moist Mucous Membranes
Cardiovascular: Regular Rhythm and Peripheral Edema (n)
Respiratory: Wheeze (n), Crackles and Stridor (n)
GI: Soft, Non Distended and Non Tender
Neurology: Awake, Oriented and No Motor Deficits
Skin: Warm
Labs/Micro/Reports
Lab Data
09/25/23 03:20
09/25/23 03:20
Microbiology
09/23/23 06:41 Nose MRSA Screen - Final
No Methicillin Resistant Staphylococcus aureus isolated.
--- NOTE | 2023-09-25 08:15 | PTCARENOTE ---
Received pt in bed. He is ill appearing. Extremities cool & mottled, and fingertips and toes are cyanotic. Verified pedal pulses with doppler. Poor doppler signals. Weak radial pulses. Left DL PICC with Levophed @ 6mcg/min for SBP>90. Breath sounds
diminished on the right, fine crackles in the mid left lobe. Room air saturation 97%, mild M[place]ILLA. Weak, he is able to position himself in bed. Poor appetite, +BSx4. Incontinent for dark diana urine. Arianne care provided. He was informed of the plan of
care. I acknowledge his feeling regarding being recommended hospice by a physician. I explained that it is the responsibility of health care workers to provide information regarding their condition, medical findings and recommendations that come
with that. He verbalized his understanding. He was informed that the entire care team is there to provide any support necessary to him and his family. Safe environment maintained. Will continue to monitor.
[2023-09-25] MEDS: PAXIL 30 MG PO (08:29)
[2023-09-25] MEDS: SODIUM BICARBONATE 650 MG PO ×3 (08:30→22:16)
[2023-09-25] MEDS: VITAMIN B-12 1000 MCG PO (08:30)
[2023-09-25] MEDS: HEPARIN 5000 UNITS SC (08:30)
[2023-09-25] MEDS: LOW STRENGTH ASPIRIN 81 MG PO (08:30)
[2023-09-25 08:39] LABS: Glucose - Point of Care 176 mg/dl (70-99)
[2023-09-25] MEDS: NOVOLOG FLEXPEN-LOW RESISTANCE 1 UNITS SC ×2 (08:45→18:41)
--- NOTE | 2023-09-25 09:33 | W.PN.CD ---
Today's Communication / Plan
-
Continue inotropic support
Impression / Plan
-
Impression 82 y/o male with ICM EF 15%, HFrEF, CAD with hx stenting, DM2, LBBB, dyslipidemia, HTN, and severe with Bio AVR 2015 who is here for evaluation of SOB and nausea since Thursday.
Cardiogenic shock with multi-organ dysfunction
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
- will defer and implement Mr. Suggs's wishes
Abnormal troponin: likely non-OK troponin elevation in setting of hypoxia
CAD:
-cath 07/14/22: right dominant circulation with patent stents prox and mid RCA, patent stent prox circ, prox and mid LAD patent stents, and ostial/proximal diag, with 10% and 20% in-stent restenosis in LAD and RCA
-denies any CP
-continue ASA, statin
Hx AVR 2016: recent echo as below
Critically ill 34 minutes.
Subjective: Nausea and dyspnea. No CP
Laboratory Data
07/12/22 07/13/22 09/23/23
03:02 05:30 05:20
Hgb 10.2 L 9.6 L
Potassium
Creatinine 1.1
Lactic Acid
Troponin I 0.085 H*
09/24/23 09/24/23 09/24/23
02:36 02:37 06:50
Hgb
Potassium 6.1 H*
Creatinine 2.1 H
Lactic Acid 6.7 H* 5.3 H*
Troponin I 0.837 H*
Selected Entries
06/08/23
05:15 09/24/23
04:49
Actual Weight 157 lb 4 oz 162 lb 4 oz
Generic Name Dose Route Start Last Admin
Trade Name Freq PRN Reason Stop Dose Admin
Aspirin 81 mg 07/12/22 08:00
Aspirin 81 Mg Chewable Tablet PO 08/09/22 07:59
DAILY EDGAR
Carvedilol 3.125 mg 07/12/22 20:00
Carvedilol 3.125 Mg Tablet PO 08/09/22 19:59
BID EDGAR
Clopidogrel Bisulfate 75 mg 07/13/22 08:00
Clopidogrel 75 Mg Tablet PO 08/10/22 07:59
DAILY EDGAR
Aspirin 81 mg 09/23/23 08:00 09/24/23 08:05
Aspirin 81 Mg Chewable Tablet PO 10/21/23 07:59 81 mg
DAILY EDGAR
Atorvastatin Calcium 20 mg 09/23/23 22:00 09/23/23 22:27
Atorvastatin (Lipitor) 20 Mg Tablet PO 10/21/23 21:59 20 mg
HS EDGAR
Midodrine 10 mg 09/23/23 08:00 09/24/23 08:05
Midodrine 5 Mg Tablet PO 10/21/23 07:59 10 mg
TID@0800,1300,1800 EDGAR
Furosemide 20 mg 09/23/23 16:00 09/24/23 08:04
Furosemide 20 Mg (10 Mg/Ml) 2 Ml Vial IV 10/21/23 15:59 20 mg
BID AT 0800,1600 EDGAR
Sodium Bicarbonate 650 mg 09/23/23 16:00 09/24/23 08:05
Sodium Bicarbonate 650 Mg Tablet PO 10/21/23 15:59 650 mg
TID EDGAR
Physical Exam
Vital Signs/Labs
Vital Signs
Temp Pulse Resp BP Pulse Ox
97.6 F 97 19 112/58 97
09/25/23 03:00 09/25/23 05:15 09/25/23 05:15 09/25/23 05:00 09/25/23 05:15
09/24/23 09/25/23 09/26/23
06:59 06:59 06:59
Actual Weight 162 lb 4 oz 165 lb 5.547 oz
09/25/23 03:20
09/25/23 03:20
Magnesium 2.2 mg/dl (1.6-2.3) 09/24/23 09:10
09/22/23 09/23/23
23:52 00:15
Erw-D-Spsklqkedep Pept > [id number] Cancelled
LAB Results
09/22/23 09/23/23 09/23/23
23:52 05:20 12:02
Troponin I 0.382 H* 0.703 H* D 0.837 H*
09/23/23 09/24/23
20:13 02:37
Troponin I 0.842 H* 0.837 H*
Physical Exam
Constitutional: No acute distress
EENT: Anicteric
Cardiovascular: Rhythm & rate is regular and Pedal edema present (trivial )
Respiratory: Respiratory effort normal and Lungs clear to auscul.
GI: Soft
Neuro/Psych: Alert and Oriented
Data Reviewed
-
Date of Service: September 25, 2023
Medical Decision Making: Reviewed Test Results
EKG: Tracing Personally Visualized and interpreted
Echo: Report Reviewed by me
Labs: Labs Reviewed by me
Critical Care Time (in minutes): 32 discussed with physicians
[2023-09-25 09:38] LABS: Glycohemoglobin (HgbA1c) 6.1 % (4.0-5.6)
[2023-09-25] MEDS: LASIX 20 MG IV ×2 (10:11→15:02)
[2023-09-25] MEDS: LEVOPHED 250 IV (10:13)
--- NOTE | 2023-09-25 10:16 | HOSPNOTE ---
Called Michael and Michael ,patients daughters ,to set up a meeting to discuss Hospice services. No answer.Call back number left.
--- NOTE | 2023-09-25 10:56 | W.PN.NEPH.PH ---
Today's Communication / Plan
-
- continue on pressor support
- continue sodium bicarb and lasix
Assessment/Plan
-
Impression:
Hyperkalemia
Acute kidney injury
Chronic hypotension on midodrine
End-stage ischemic cardiomyopathy
Congestive heart failure decompensation
Metabolic acidosis
Coronary artery disease with history of multiple stenting procedure
History of aortic valve replacement in 2005
Plan:
ROSEY:
-Likely prerenal in mediated in the setting of congestive heart failure decompensation with hemodynamic instability
-Potassium down to 4.4 after Lokelma administration
-Metabolic acidosis improving with sodium bicarbonate support (PO tabs)
-Acute kidney injury continues to exacerbate with creatinine up to 2.2
-Patient remains hemodynamically unstable in setting of likely cardiogenic shock
-Sow catheter in place
-Urinalysis unimpressive
-Defer hemodynamics to cardiology in setting of end-stage ischemic cardiomyopathy, on levo currently
-HyperK now normalized. did previously receive Lokelma
-Patient is critically ill with evolving renal failure in the setting of cardiogenic shock with hemodynamic instability requiring pressor support
-31 minutes critical care time spent with patient
-
-
Date of Service: September 25, 2023
CC / HPI / ROS
-
Chief Complaint:
Acute kidney injury
History of Present Illness:
Creatinine worsening to 2.2
Hyperkalemia improved status post Lokelma administration
Metabolic acidosis with modest improvement with sodium bicarb and administration
Hemodynamically labile on pressor support
Review of Systems:
Oliguric
No resting chest pain
Shortness of breath requiring oxygen support
Weights still trending up
Labs
-
Labs:
WBC 10.5 10^3/uL (4.8-10.8) 09/25/23 03:20
RBC 2.39 10^6/uL (4.70-6.10) L 09/25/23 03:20
Hgb 9.0 g/dL (13.0-18.0) L 09/25/23 03:20
Hct 26.0 % (39.0-52.0) L 09/25/23 03:20
Plt Count 53 10^3/uL (130-400) L D 09/25/23 03:20
Sodium 131 mmol/L (135-145) L 09/25/23 03:20
Potassium 4.4 mmol/L (3.5-5.1) 09/25/23 03:20
Chloride 93 mmol/L (98-107) L 09/25/23 03:20
Carbon Dioxide 19 mmol/L (22-30) L 09/25/23 03:20
BUN 74 mg/dl (9-20) H 09/25/23 03:20
Creatinine 2.2 mg/dL (0.7-1.3) H 09/25/23 03:20
eGFR 29.54 09/25/23 03:20
Glucose 150 mg/dl (70-99) H 09/25/23 03:20
Calcium 7.7 mg/dl (8.4-10.2) L 09/25/23 03:20
Nuw-A-Tfbytycecxa Pept Cancelled 09/23/23 00:15
Albumin Cancelled 09/22/23 22:41
Physical Exam
-
Vital Signs:
Vital Signs
Temp Pulse Resp BP Pulse Ox
97.6 F 96 19 118/86 97
09/25/23 03:00 09/25/23 10:11 09/25/23 05:15 09/25/23 10:11 09/25/23 05:15
Cardiovascular:: Regular rate and rhythm
Respiratory:: Bilateral: Coarse
Lung Excursion:: Normal
Abdomen:: Nontender and Soft
Bowel Sounds:: Normal
Extremity Edema:: None: Bilateral:
Sow Catheter: Yes
--- NOTE | 2023-09-25 12:00 | PTCARENOTE ---
Brief changed. Repositioned in the bed. Nausea ensued. Will administer Zofran as ordered. He stated he was passing gas and did not feel constipated, however his appetite is poor and did not want to eat lunch.
[2023-09-25] MEDS: ZOFRAN 4 MG IV ×2 (12:06→16:30)
[2023-09-25] MEDS: LEVOPHED 258 MG IV (12:22)
[2023-09-25 12:42] LABS: Glucose - Point of Care 192 mg/dl (70-99)
--- NOTE | 2023-09-25 12:54 | CM ---
CM following re: discharge planning.
Discussed in Rounds, reviewed pt's chart, family at bedside.
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
D/C plan: uncertain at this time, possibly comfort care/hospice care in the next 24 hours.
CM will follow with discharge plan updates as hospitalization progresses
--- NOTE | 2023-09-25 13:54 | PN.CDI ---
CDI
- -
CDI:
Physician Documentation Request
Admit Date: 09/23/23 03:36
Dear Doctor Caron,
Clinical Indicators:
Patient admitted with acute on chronic HFrEF.
1500 ml/day fluid restriction ordered.
Sodium levels:
09/24/23 09/25/23
18:38 03:20
Sodium 132 L 131 L
Based on the above, could you clarify in the progress notes, the appropriate diagnosis, if significant, that supports the above abnormalities and additional evaluation, monitoring and/or treatment rendered:
Hyponatremia
Abnormal lab value, clinically insignificant
Other, please specify
Use of terms such as suspected, likely, concern for, or probable (associated with a specific diagnosis that is being evaluated, monitored, or treated as if it exists) are acceptable and can be coded in the inpatient setting, when documented at the
time of discharge.
Thank you,
ADÁN Singh RN
CDI Specialist
available via tiger text
Please use your independent medical judgment in providing your response.
--- NOTE | 2023-09-25 14:45 | PTCARENOTE ---
Pt reports difficulty breathing. Fine crackles 1/[address] Rubio notified, will administer Lasix now. Pt stated his nausea resolved. Will hold off on the Zofran dose for now. Daughter remains at the bedside.
[2023-09-25] MEDS: PROTONIX 40 MG PO (15:03)
[2023-09-25] MEDS: NOVOLOG FLEXPEN-LOW RESISTANCE SC (15:26)
--- NOTE | 2023-09-25 15:41 | PTCARENOTE ---
Pt's is at the bedside. Pt appears very happy to see her. Supportive care given.
[2023-09-25 17:48] LABS: Glucose - Point of Care 167 mg/dl (70-99)
--- NOTE | 2023-09-25 18:29 | HOSPNOTE ---
Met with the patients two daughters and son in law. Information was given on the hospice philosophy and care. Family understands that the patient may decline once medications are stopped. The will consider GIP if patients meets criteria or home
hospice if the patient stabilizes. Hospice phone numbers were given to the family.
--- NOTE | 2023-09-25 21:00 | PTCARENOTE ---
Family at bedside. Pt c/o SOB. repositioned in bed, given morphine iv with desired effect. Resting comfortably.
[2023-09-25] MEDS: MORPHINE SULFATE 2 MG IV ×2 (21:03→22:16)
[2023-09-25] MEDS: LIPITOR 20 MG PO (22:16)
[2023-09-26] VITALS (10 sets, daily range): BP systolic 46–144; BP diastolic 36–128
[2023-09-26] MEDS: MORPHINE SULFATE 4 MG IV ×2 (00:37→03:17)
[2023-09-26] MEDS: ZOFRAN 4 MG IV (00:38)
--- NOTE | 2023-09-26 01:00 | PTCARENOTE ---
Pt c/o discomfort/restlessness, no c/o pain. Ativan given for air hunger. Pt relaxed, sat 98%.
[2023-09-26] MEDS: NSS (PRESERVATIVE FREE) 0.25 ML IV (01:39)
[2023-09-26] MEDS: ATIVAN 0.5 MG IV (01:39)
--- NOTE | 2023-09-26 02:43 | PTCARENOTE ---
SBP 40, change in rhythm. LARISSA Francois made family aware. Levo maxed.
--- NOTE | 2023-09-26 03:39 | W.PN.UPDATE ---
Update Note
Progress Note Update
Patient's daughter Mariluz (attempted Natalee but she did not answer) called as there were changes in vital signs, heart rhythm and worsening hypotension despite x1 vasopressor levophed gtt. Mariluz would contact family and her sister Natalee.
Family arrived at bedside, reviewed plan of care, answered all questions, and decision was made to move to comfort measures with prn morphine with morphine gtt if needed. Family is awaiting additional members to arrive prior to turning of
vasopressor/levophed gtt.
--- NOTE | 2023-09-26 04:40 | PTCARENOTE ---
Family at bedside. Mail Processor called for prayer. Decision made by family to turn off pressor and make pt comfortable. 4mg IV X1 Morphine given. Ativan and Morphine as needed PRN. Will support family at this time.
[2023-09-26] MEDS: MORPHINE SULFATE 2 MG IV (05:15)
--- NOTE | 2023-09-26 06:44 | W.PN.DEATH ---
Pronouncement of
-
Called to see patient to pronounce.
No spontaneous heart tones or respirations noted.
Patient not responsive to verbal stimuli.
Patient is pronounced .
Time of : 06:37
Date of : 09/26/23
Cause of : cardiorenal syndrome, ischemic cardiomyopathy, acute kidney injury, acute on chronic heart failure
Family Notified: Yes
--- NOTE | 2023-09-26 08:26 | PTCARENOTE ---
and family in to see pt. PICC line removed. Arianne care completed. ISABELLA called by plant operator/shift supervisor. Family took glasses and wedding ring. No other belongings noted
--- NOTE | 2023-09-26 11:18 | W.DCSUMMARY ---
Discharge Summary
Discharge Data
Date of Admission: 09/23/23
Date of Discharge: 09/26/23
-
Pending Results: No
Hospital Course
This is an 82-year-old male who presented on 22 September and on 25 September at 637 hours and declared by the manager agricultural on-call. He has a longstanding history of ischemic cardiomyopathy with a markedly reduced EF recently of 15% and presented
with increasing shortness of breath hypotension in the setting of already known coronary artery disease consistent with ischemic cardiomyopathy history of stenting severe aortic stenosis with bioprosthetic aortic valve back in 2016 with persisting
shortness of breath and nausea since the day prior to his admission. He was noted to have a significantly elevated proBNP of 27,000 and an abnormal troponin and evidence of impending cardiogenic shock with multiorgan dysfunction manifested by
increasing creatinine and prerenal azotemia consistent with underlying congestive heart failure. He was seen by the cardiology service and nephrology service and and developed metabolic acidosis hyperkalemia necessitating Lokelma and bicarbonate
infusions and bicarbonate orally. The following morning after his admission the patient developed further hypotension necessitating transfer to the intensive care unit for pressor support it was at this time in conversation with family members the
extremely poor prognosis was offered to them especially after obtaining a repeat 2D echocardiogram now showing only a 10% EF with the hospital medicine service and the cardiology service of the opinion that the patient's reaching the terminal
aspects of his disease process suggesting to family members comfort care and hospice care to be initiated as palliation. Patient himself wanted to wait another 24 hours to see if he improves at all on pressor support which was not the case and
patient developed oliguric and further renal insufficiency and failure along with persisting lactic acidosis that suggested poor organ perfusion and decision was made to avoid further inotropic support/patient at approximately 3:30 AM on 25 September
developed worsening hypotension in spite of pressor support with Levophed and after contacting family members and and then becoming available at bedside decision was made to place him on comfort measures and he was found without vital signs at 637
hours of 25 September and declared at that time and certified with diagnosis being cardiorenal syndrome, ischemic cardiomyopathy, acute kidney injury, acute on chronic heart failure. By the REUSE TECHNICIAN manager agricultural Joan Real
Discharge Plan
-
Patient Disposition:
Date/Time
Date/Time: 09/26/23 06:37
Discharge Date and Time
Discharge Date/Time: 09/26/23 09:19
Print Language: RUSSIAN
== END 2023-09-26 09:19 | disposition expired | DRG 291 ==
LOC: ICU 03:36
PROVIDERS: Nurse Practitioner Family; Nurse Practitioner Gerontology; ADMITTING PHYSICIAN Internal Medicine; ATTENDING PHYSICIAN Internal Medicine; CONSULT PHYSICIAN Specialist; EMERGENCY PHYSICIAN Student in an Organized Health Care Education/Training Program; FAMILY PHYSICIAN Internal Medicine; OTHER PHYSICIAN Internal Medicine Cardiovascular Disease; OTHER PHYSICIAN Internal Medicine Pulmonary Disease
DX: I13.0 Hypertensive heart and chronic kidney disease with heart failure and stage 1 through stage 4 chronic kidney disease, or unspecified chronic kidney disease (principal); I50.23 Acute on chronic systolic (congestive) heart failure; J96.01 Acute respiratory failure with hypoxia; N17.9 Acute kidney failure, unspecified; E87.20 Acidosis, unspecified; E87.1 Hypo-osmolality and hyponatremia; R64 Cachexia; D61.818 Other pancytopenia; I5A Non-ischemic myocardial injury (non-traumatic); Z87.891 Personal history of nicotine dependence; E87.5 Hyperkalemia; N18.9 Chronic kidney disease, unspecified; I25.5 Ischemic cardiomyopathy; I25.10 Atherosclerotic heart disease of native coronary artery without angina pectoris; Z95.5 Presence of coronary angioplasty implant and graft; K21.9 Gastro-esophageal reflux disease without esophagitis; E78.00 Pure hypercholesterolemia, unspecified; F41.9 Anxiety disorder, unspecified; F32.A Depression, unspecified; Z51.5 Encounter for palliative care; Z68.23 Body mass index [BMI] 23.0-23.9, adult; R57.0 Cardiogenic shock
CPT/HCPCS: 93308; 71045; 71046; 80048; 81003; 81015; 82533; 82570; 82728; 82962; 83036; 83540; 83550; 83605; 83735; 83880; 84300; 84484; 85025; 85027; 87070; 93005; 93321; 93325; 99285